=== PATIENT | female | born 1985 | race African-American/Black ===

== ENCOUNTER → 2016-12-13 | Outpatient (CLI) | payer BC, OTHER ==
[~2016-12-13] MED LIST: AMOX875T PO; CLIN300C2 PO; LORA-741 PO; PRDUDL5 PO; PRDXLUD PO; SULF800T23 PO; VNTHFA/IN INH
--- NOTE | 2016-12-14 06:05 | PAP/PSG TECHNICIAN REPORT ---
[facility] Consumer Insight Manager Polysomnogram Report Study name: None Report date: 12/14/2016 Study date: 12/13/2016 Referring Physician: Anna Wiseman M.D. Name: LUIS MARLEY Interpreting Physician: Beto Wiseman M.D. Date of : 1985 Consumer Insight Manager: LAUREN Roman. Sex: Female Age: 31 StudyType: PSG Weight: 429 lbs Height: 31 years, Height 5' 7" Neck Circum: BMI: 67.18 Medications: Naproxen Sodium 550mg, Flagyl 500mg, Ativan 0.5mg, Prilosec 20mg Patient History Study started on room air with ETCO2 monitoring in room #8. 31 yr old female here tonight for a possible split psg. In 2013 she had a sleep study that had an AHI of 5.2 at 407lbs. She now weighs 422lbs and still snores. She always feels tired. She never tried cpap..Her ESS=10/24. Neck circ=16.25inches. Parameters Monitored NPSG: E1-M2, E2-M1, Fp1-M2, Fp2-M1, F3-M2, F4-M2, F4-M1, C3-M2, C4-M2, C4-M1, O1-M2, O2-M2, O2-M1, T3-M2, T4-M1, P3-M2, P4-M1, CHIN1, CHIN2, HR, EKG, Legs, PFLOW, SNOR, FLOW, CFLOW, Tidal Volume, THOR, ABDO, SpO2, PLTH, CPRESS, ETCO2 Wave, ETCO2, pH Sleep Architecture Sleep Stages Time at Lights Off 11:13:04 PM STAGES Time (min.) TST (%) Time at Lights On 5:59:04 AM Wake 25.5 -- Total Recording Time (TRT) 406.00 min. N1 9.5 2 Total Sleep Period (TSP) 400.0 min. N2 221.5 58 Total Sleep Time (TST) 380.5min. N3 70.5 19 Awake Time 25.5 min. REM 79.0 21 Wake after Sleep Onset 19.5 min. Sleep Efficiency (SE) 94 % Sleep Onset Latency (FELICIA) 6.0 min. Number of Stage 1 Shifts None Awakenings 10 Stage Changes 50 Number of REM periods 7 REM 79.0 21 REM Latency 74.0 min. NREM 301.5 79 Body Position Analysis Supine Right Left Side Prone Vertical Total Sleep Time (min.) 406.0 0.0 0.0 0.00 0.0 0.0 Total Sleep Time (%) 100% 0% 0% 0 0% N/A% Total Sleep Time REM (min.) 79.0 0.0 0.0 None 0.0 0.0 Total Sleep Time NREM (min.) 301.5 0.0 0.0 None 0.0 0.0 Intermittent Wake (min.) 25.5 0.0 0.0 None 0.0 0.0 Total Sleep Period (%) 100% None None None None None Arousals Myoclonus (PLM) * Events Count Index Events Count Index Spontaneous 10 2 Events Awake (PLMW) 51 120.0 Respiratory 2 0.3 Events Asleep w/ Arousal (PLMA) 12 1.9 PLM 12 2 Events Asleep w/o Arousal (PLMS) 45 7.1 Snoring 21 3 Total Asleep 57 9.0 Total 43 7 Total 108 16 Respiratory Analysis * CA OA MA CH H RERA Total Count 0 0 0 0 15 0 15 Index 0.0 0.0 0.0 0 2.4 0 2.4 Mean Duration 0.0 0.0 0.0 0.00 18.3 0.0 18.3 Longest Duration 0.0 0.0 0.0 0.00 0.0 0.0 30.8 Respiratory Event Summary Total Supine ~Supine Right Left Prone REM NREM Apneas Count 0 0 N/A N/A N/A N/A 0 0 Index 0.0 0 N/A N/A N/A N/A 0 0 Hypopneas (4% Desat) Count 15 15 N/A N/A N/A N/A 12 3 Index 2.4 2.4 N/A N/A N/A N/A 9.1 0.6 Apneas & All Hypopneas Count 15 15 N/A N/A N/A N/A 12 3 Index 2.4 2 N/A N/A N/A N/A 9.1 0.6 Respiratory Events (Machine Woodworking Sander+All Hyp+RERA) Count 15 15 N/A N/A N/A N/A 12 3 Index 2.4 2 N/A N/A N/A N/A 9.1 0.6 Respiratory Related Arousal Count 2 15 N/A N/A N/A N/A 1 1 Index 0.3 0 N/A N/A N/A N/A 1 0 Snoring Analysis Supine Right Left Prone REM NREM Total Snore duration 30.6 min Snores count 1,786 N/A N/A N/A 273 1,513 1,786 Snore mean duration 1.0 Sec Snores index 282 N/A N/A N/A 207.3 301.1 281.6 TST with snoring (%) 8.0% SpO2 Analysis Total REM NREM Awake <50% 0.0 min. 0.0 min. 0.0 min. 0.0 min. 51 - 60% 0.0 min. 0.0 min. 0.0 min. 0.0 min. 61 - 70% 0.0 min. 0.0 min. 0.0 min. 0.0 min. 71 - 80% 0.0 min. 0.0 min. 0.0 min. 0.0 min. 81 - 90% 44.8 min. 12.7 min. 29.7 min. 2.5 min. 91 - 100% 360.8 min. 66.3 min. 271.9 min. 22.7 min. Average 92 92 92 93 Minimum SpO2 84 84 88 88 Desaturation Event Index 5.3 17.5 1.6 11.8 # Desat. Events below 89% 11 9 2 N/A Time(%) with Saturation below 89% 0.6 0.5 0.1 0.0 Time(min.) with Saturation below 89% 2.4 2.0 0.3 0.1 Heart Rate Analysis End Tidal CO2 Analysis Min (bpm) Max (bpm) Average (bpm) TSP (mins) % of TSP Awake 63 102 87 Above 55 mmHg 0.0 0.0 NREM 63 104 83 50-55 mmHg 22.9 6.0 REM 68 101 84 45-50 mmHg 289.7 76.1 Overall 63 104 83 40-45 mmHg 67.8 17.8 35-40 mmHg 0.0 0.0 30-35 mmHg 0.0 0.0 Average ETCO2 0.0 Supplemental O2 Values Minimum O2 level: None Value Start Time End Time Consumer Insight Manager Comments Mrs. Marley slept in the supine position with her head propped up on several pillows as she sleeps at home. No cardiac arrhythmia or PLM's noted. No bruxism noted. Snoring was noted and scored as a 4 on a scale of 1 through 5. (0=no snoring, 5=snoring loud enough to be heard through a closed door or down the [place] way) She did not use the restroom during the night. She stated that she slept about the same as usual. She did get two phone calls during the night that woke her. The final report will be interpreted and signed by a sleep physician. The completed physician report will then be placed in the patient medical record. Therapy (cm H2O) 0 TIB (min.) 406.0 TST (min.) 380.5 Sleep Onset (min.) 6.0 REM Onset From Sleep (min.) 74.0 Sleep Efficiency % 94 Wakefulness (%) 6 Wakefulness (min.) 25.5 NREM 1 (%) 2 NREM 1 (min.) 9.5 NREM 2 (%) 58 NREM 2 (min.) 221.5 NREM 3 (%) 19 NREM 3 (min.) 70.5 REM (%) 21 REM (min.) 79.0 # Arousals 43 Arousal Index 7 # Snore 1,786 Snore Index 281.6 AHI 2.4 AHI Supine 2 AHI Non-Supine N/A NREM AHI 0.6 REM AHI 9.1 RDI 2.4 # Obstructive Apnea 0 # Central Apnea 0 # Mixed Apnea 0 # Hypopneas 15 RERAs 0 Total Respiratory Events 15 Time Below SpO2 89% (min.) 2.3 Mean NREM SpO2 (%) 92 Mean REM SpO2 (%) 92 Mean Sleep SpO2 (%) 92 Min NREM SpO2 (%) 88 Min REM SpO2 (%) 84 Position Supine (min.) 406.0 Position Non-supine (min.) 0.0 LM Index Sleep 9.0 LM Index NREM 9.4 LM Index REM 7.6 Mean Heart Rate (bpm) 83 Min Heart Rate (bpm) 63
--- NOTE | 2016-12-17 14:28 | POLYSOMNOGRAPH REPORT ---
REFERRING PERSON: Dr. John Wiseman. COMMUNICATIONS PLANNER: Danielle Armstrong. Ms. 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 She states she always feels tired and never feels rested. Her [place] sleepiness scale score on the evening of this study is 10. BMI is 67.18. Following the technical and digital specifications of the [place] [employer] (AASM) a standard diagnostic polysomnogram was performed monitoring EEG, EOG, EMG (chin and leg deviations), oxygen saturation, body position, digital video, respiratory effort and airflow. The sleep Stage and event scoring was based on the AASM Manual for the Scoring of Sleep and Associated Events 2007 edition. Apneas are defined as a drop in the peak thermal sensor excursion by >90% of baseline for at least 10 seconds. Hypopneas were scored using the 4% oxygen desaturation rule (4A-Medicare) and a decrease in the nasal pressure excursions by >30% of baseline for at least 10 seconds. Respiratory effort-related arousal (RERA's) is defined as a sequence of breaths lasting at least 10 seconds characterized by increasing respiratory effort or flattening of the nasal pressure waveform leading to an arousal from sleep when the sequence of breaths does not meet criteria for an apnea or hypopnea. Apnea Hypopnea index (AHI) is defined as the number of apneas and hypopneas occurring in an hour of sleep. Respiratory disturbance index (RDI) is defined as the number of apneas, hypopneas, and RERA's occurring in an hour of sleep. Ms. Marley's total sleep period time was 400 minutes. Total sleep time was 380.5 minutes. Sleep efficiency was 94%. Latency to sleep onset was 6 minutes with wake after sleep onset of 19.5 minutes. Total non-REM sleep time was 301.5 minutes. She spent 2% of that time in N1 sleep, 58% in N2 sleep and 19% in N3 sleep. REM latency was 74 minutes with total REM sleep time of 79 minutes or 21% of total sleep time. Ms. Marley had 43 cortical arousals from sleep. 21 of these arousals were due to snoring, 12 due to periodic limb movements of sleep, 2 were due to respiratory events, and 10 were spontaneous. There were 57 periodic limb movements noted on this test. Limb movement index was 9. Limb movement with arousal index was 1.9. There were no central obstructive or mixed apneas on this test. There were 15 hypopnea and no RERA. Apnea-hypopnea index was normal at 2.4. She did have some events during REM and her REM AHI was 9.1. 1786 snoring events were recorded. Total sleep time with snoring was 8%. Mean saturation was 92 with desaturations briefly to 84%. Saturations were less than 89 for only 2.4 minutes of sleep time. Heart rates during sleep ranged from a low of 63 beats per minute to a high of 104 beats per minute. End tidal CO2s were recorded on this test. End tidal CO2s were between 50 and 55 mmHg for 22.9 minutes of recording time or 6% of total sleep time, between 45 and 50 mmHg for 76.1%, between 40 and 45 mmHg for 17.8% of total sleep period time. This is suggestive of possible obesity hypoventilation. IMPRESSION AND PLAN: 31-year-old morbidly obese female without evidence of sleep apnea or nocturnal hypoxemia on this study. End tidal CO2 on this test suggests possible obesity hypoventilation syndrome. Clinical correlation is needed.
== END | disposition home or self-care (01) ==
LOC: C.NEUR 21:00
PROVIDERS: ATTEND Family Medicine
DX: G47.33 Obstructive sleep apnea (adult) (pediatric) (principal)

== ENCOUNTER 2017-02-14 23:53 | Emergency (ER) | payer OTHER ==
[~2017-02-14] VITALS: Ht 170.2 cm; Wt 182.5 kg
[~2017-02-14 23:53] MED LIST changes: -AMOX875T PO; -CLIN300C2 PO; -PRDUDL5 PO; -PRDXLUD PO; -SULF800T23 PO; -VNTHFA/IN INH
[2017-02-14 23:54] VITALS: TEMP 37.3; Ht 170.2 cm; Wt 182.5 kg
[2017-02-15] MEDS ORDERED: ACETAMINOPHEN 500 MG TAB PO STA (00:15)
[2017-02-15] MEDS ORDERED: SODIUM CHLORIDE 0.9% 1000ML 1,000 ML IV ONE (00:15)
[2017-02-15] MEDS ORDERED: LORA-741 PO (00:40)
[2017-02-15 00:42] LABS: HEMATOCRIT 41.1 % (37-47); MEAN CELL VOLUME 83.2 fL (80-100); MEAN CORPUSCULAR HEMOGLOBIN 28.5 pg (25-34); MEAN CORPUSCULAR HGB CONC 34.3 g/dl (32-36); MEAN PLATELET VOLUME 10.8 fL (7.4-10.4); PLATELET COUNT 245 K/uL (130-400); RED BLOOD COUNT 4.94 M/uL (4.2-5.4); WHITE BLOOD COUNT 13.69 K/uL (4.8-10.8)
[2017-02-15 00:44] LABS: URINE APPEARANCE CLOUDY (CLEAR); URINE BILIRUBIN NEG (NEG); URINE COLOR YELLOW; URINE EPITHELIAL CELL AUTO >30 /lpf (0-5); URINE NITRITE NEG (NEG); URINE SPECIFIC GRAVITY 1.018 (1.000-1.030); UROBILINOGEN NEG (NEG); ZZUR CULT IF INDIC CLEAN CATCH NO
[2017-02-15 00:47] LABS: MANUAL MICROSCOPIC REQUIRED? NO; REVIEW REQ? NO
[2017-02-15 01:03] LABS: BUN/CREATININE RATIO 10.4 (10-20); CALCIUM 8.6 mg/dl (8.5-10.1); CREATININE 0.77 mg/dl (0.60-1.20); POTASSIUM 3.4 mmol/L (3.5-5.1)
[2017-02-15 01:07] LABS: ALB/GLOB RATIO 0.7 (0.9-2)
[2017-02-15 01:32] LABS: BASO % 0.1 %; BASO ABS # 0.02 K/uL (0-0.2); COMPLETE YES; EOS % 1.5 %; IG% 0.4 %; LYMPH % 37.3 %; LYMPH ABS # 5.11 K/uL (1.2-3.4); MONO % 6.4 %; NEUT % 54.3 %
[2017-02-15 02:55] VITALS: BP 100/68; PULSE 91; O2SAT 97
--- NOTE | 2017-02-15 06:28 | EMERGENCY ROOM VISIT NOTE ---
History First contact with patient: 00:05 Chief Complaint: ABDOMINAL PAIN Stated Complaint: ADB PAIN,CRAMPING Nursing Triage Summary: pt c/o pain with urination, left sided abd pain then she thought she had movement in her abd tonight, has thought she was but tests have been neg. History of Present Illness The patient is a 31 year old female who presents to the Emergency Room with complaints of left-sided abdominal pain that began tonight. The patient describes this as a cramping sensation that does not radiate. The patient has been eating, drinking, using the bathroom is normal. The patient is concerned about as she is trying to become . She states her last regular menstrual period was about 2 months ago. She also states that she has had one previous where her urine screen was negative throughout. The patient does not have fever or chills. No chest pain, chest tightness, or shortness of breath. No vaginal drainage or discharge. She rates her discomfort a 5/10. Review of Systems More than 10 systems were reviewed and otherwise negative with the exception of history of present illness. Past Medical/Surgical History Medical Problems: (1) Abdominal pain (2) Abscess of breast (3) Acute bronchitis (4) Anxiety State Nos (5) Asthma (6) Body aches (7) Chest pain (8) Fatigue (9) Hidradenitis (10) Hidradenitis suppurativa of left axilla (11) Hidradenitis suppurativa of left axilla (12) Hidradenitis suppurativa of right axilla (13) HIGH VAGINAL LAC-POSTPAR (14) Influenza-like symptoms (15) Left ankle sprain (16) Morbid Obesity (17) Pharyngitis (18) Preseptal cellulitis of left eye (19) Sinusitis (20) Sty, internal (21) Thoracic spine pain (22) Urinary tract infection (23) Urinary tract infection (24) Vaginal delivery (25) Vaginal discharge in Surgical Problems: (1) History of bilateral breast reduction surgery Family History Patient reports no known family medical history. Social History Smoking Status: Current Every Day Smoker Alcohol Use: none Drug Use: none Marital Status: Housing Status: lives with family Occupation Status: employed Current/Historical Medications Scheduled PRN Lorazepam (Ativan), 0.5 MG PO TID PRN for Anxiety Allergies Coded Allergies: No Known Allergies (Verified , 02/15/17) Physical Exam Vital Signs Date Time Temp Pulse Resp B/P Pulse Ox O2 Delivery O2 Flow Rate FiO2 02/15/17 02:55 91 16 100/68 97 02/14/17 23:54 37.3 98 18 159/86 96 Room Air Pain Rating (0-10): 6.0 Physical Exam VITALS: Vitals are noted on the nurse's note and reviewed by myself. Vital signs stable. GENERAL: Well-developed, well-nourished, morbidly obese black female, who is in no acute distress and resting comfortably. Patient is cooperative with the examination. HEAD: Normocephalic atraumatic. NECK: Supple without nuchal rigidity. No lymphadenopathy. No thyromegaly. Cervical spine is nontender. HEART: Regular rate and rhythm without murmurs gallops or rubs. LUNGS: Clear to auscultation bilaterally without wheezes, rales or rhonchi. No retractions or accessory muscle use. ABDOMEN: Positive normal bowel sounds x 4. Soft, nontender, without masses or organomegaly. No guarding or rebound tenderness. MUSCULOSKELETAL: No muscle atrophy, erythema, or edema noted. Full range of motion without joint tenderness in all extremities. Medical Decision & Procedures ER Provider Diagnostic Interpretation: CT ABDOMEN & PELVIS: Prior from 09/06/16 Normal appendix. No free air, free fluid, or bowel obstruction. No obstructing urinary tract calculus or hydronephrosis. Small fat-containing umbilical hernia Small and mildly enlarged inguinal nodes, nonspecific Laboratory Results 02/15/17 00:20 Red Blood Count 4.94, Mean Corpuscular Volume 83.2, Mean Corpuscular Hemoglobin 28.5, Mean Corpuscular Hemoglobin Concent 34.3, Mean Platelet Volume 10.8, Neutrophils (%) (Auto) 54.3, Lymphocytes (%) (Auto) 37.3, Monocytes (%) (Auto) 6.4, Eosinophils (%) (Auto) 1.5, Basophils (%) (Auto) 0.1, Neutrophils # (Auto) 7.43, Lymphocytes # (Auto) 5.11, Monocytes # (Auto) 0.87, Eosinophils # (Auto) 0.21, Basophils # (Auto) 0.02 02/15/17 00:20 Test 02/15/17 00:20 White Blood Count 13.69 K/uL (4.8-10.8) Red Blood Count 4.94 M/uL (4.2-5.4) Hemoglobin 14.1 g/dL (12.0-16.0) Hematocrit 41.1 % (37-47) Mean Corpuscular Volume 83.2 fL (80-100) Mean Corpuscular Hemoglobin 28.5 pg (25-34) Mean Corpuscular Hemoglobin Concent 34.3 g/dl (32-36) Platelet Count 245 K/uL (130-400) Mean Platelet Volume 10.8 fL (7.4-10.4) Neutrophils (%) (Auto) 54.3 % Lymphocytes (%) (Auto) 37.3 % Monocytes (%) (Auto) 6.4 % Eosinophils (%) (Auto) 1.5 % Basophils (%) (Auto) 0.1 % Neutrophils # (Auto) 7.43 K/uL (1.4-6.5) Lymphocytes # (Auto) 5.11 K/uL (1.2-3.4) Monocytes # (Auto) 0.87 K/uL (0.11-0.59) Eosinophils # (Auto) 0.21 K/uL (0-0.5) Basophils # (Auto) 0.02 K/uL (0-0.2) RDW Standard Deviation 40.7 fL (36.4-46.3) RDW Coefficient of Variation 13.5 % (11.5-14.5) Immature Granulocyte % (Auto) 0.4 % Immature Granulocyte # (Auto) 0.05 K/uL (0.00-0.02) Urine Color YELLOW Urine Appearance CLOUDY (CLEAR) Urine pH 6.0 (4.5-7.5) Urine Specific [place] 1.018 (1.000-1.030) Urine Protein NEG (NEG) Urine Glucose (UA) NEG (NEG) Urine Ketones NEG (NEG) Urine Occult Blood 1+ (NEG) Urine Nitrite NEG (NEG) Urine Bilirubin NEG (NEG) Urine Urobilinogen NEG (NEG) Urine Leukocyte Esterase TRACE (NEG) Urine WBC (Auto) 1-5 /hpf (0-5) Urine RBC (Auto) 5-10 /hpf (0-4) Urine Hyaline Casts (Auto) 1-5 /lpf (0-5) Urine Epithelial Cells (Auto) >30 /lpf (0-5) Urine Bacteria (Auto) NEG (NEG) Anion Gap 9.0 mmol/L (3-11) Est Creatinine Clear Calc Drug Dose 187.2 ml/min Estimated GFR () 120.9 Estimated GFR (Non- 104.3 BUN/Creatinine Ratio 10.4 (10-20) Calcium Level 8.6 mg/dl (8.5-10.1) Total Bilirubin 0.2 mg/dl (0.2-1) Aspartate Amino Transf (AST/SGOT) 10 U/L (15-37) Alanine Aminotransferase (ALT/SGPT) 21 U/L (12-78) Alkaline Phosphatase 95 U/L (45-117) Total Protein 7.6 gm/dl (6.4-8.2) Albumin 3.2 gm/dl (3.4-5.0) Globulin 4.4 gm/dl (2.5-4.0) Albumin/Globulin Ratio 0.7 (0.9-2) Lipase 91 U/L (73-393) Human Chorionic Gonadotropin, Quant < 1 mIU/mL Medications Administered Medications (Trade) Dose Ordered Sig/Missy Route Start Time Stop Time Status Last Admin Dose Admin Sodium Chloride (Nss 1000ml) 1,000 ml @ 999 mls/hr Q1H1M ONCE IV 02/15/17 00:15 02/15/17 01:15 DC 02/15/17 00:27 999 MLS/HR Acetaminophen (Tylenol Tab) 1,000 mg NOW STAT PO 02/15/17 00:15 02/15/17 00:17 DC 02/15/17 00:28 1,000 MG ED Course Physical exam and history were performed. Nursing notes and EMR were reviewed. Patient appears to have reports of left-sided abdominal pain over the course of the past one day. On examination the patient does not appear toxic and is without significant abdominal tenderness. One of her primary concerns is for . IV access was established and labs obtained. The patient was hydrated as above. The patient's blood work is as above and was reviewed. She does have a mildly elevated white blood cell count of greater than 13,000. She does not have a significant anemia or gross electrolyte imbalance. Her hCG quantitative is less than 1, and she is not . Lipase and transaminases are nondiagnostic. Urine is without obvious sign of infection. On reevaluation she did continue to have some reported left-sided abdominal discomfort, and because of this I did elect perform a CT scan. The patient CT scan is as above and does not show an acute surgical process. The patient does have some enlarged lymph nodes, and her symptoms may certainly be the result of a viral or foodborne illness. I explained this to the patient , and overall she feels stable for discharge home. The patient is to follow-up with her primary care physician in the next 2-3 days for recheck. She was otherwise invited back to the ER with any new, worsening, or concerning symptoms. The chart was completed utilizing [employer] Speech Voice Recognition Software. Grammatical errors, random word insertions, pronoun errors, and incomplete sentences are an occasional consequence of this system due to software limitations, ambient noise, and hardware issues. Any formal questions or concerns about the content, text, or information contained within the body of this dictation should be directly addressed to the provider for clarification. . Medical Decision Differential diagnosis: Etiologies such as appendicitis, diverticulitis, PUD, biliary pathology, UTI, pancreatitis, obstruction, mesenteric ischemia, aortic pathology, infections, inflammatory bowel disease, renal colic, as well as others were entertained. Impression Primary Impression: Left sided abdominal pain Departure Information Dispostion Home / Self-Care Condition GOOD Forms HOME CARE DOCUMENTATION FORM, IMPORTANT VISIT INFORMATION Patient Instructions My [facility] Additional Instructions You were seen and evaluated today on an emergency basis only. This is not a substitute for, or an effort to provide, complete comprehensive medical care. It is not possible to recognize and treat all injuries or illnesses in a single emergency department visit. For this reason it is recommended that you followup with your primary care physician next week for ongoing care and evaluation. Drink fluids and remain well hydrated. For baseline pain relief you may alternate ibuprofen and acetaminophen every 4 hours for pain control. Take 600 mg ibuprofen (Advil) and then 4 hours later take 1000 mg acetaminophen (Tylenol). Do not take more than 3000 mg acetaminophen in a single day. You are welcome to return to the emergency department anytime with new, worsening, or concerning symptoms.
--- NOTE | 2017-02-15 07:15 | DIAGNOSTIC IMAGING REPORT ---
CT SCAN OF THE ABDOMEN AND PELVIS WITHOUT IV CONTRAST CLINICAL HISTORY: Left-sided abdominal pain. COMPARISON STUDY: Abdominal CT dated 09/06/2016. TECHNIQUE: CT scan of the abdomen and pelvis is performed from the lung bases to the proximal femora. Images are reviewed in the axial, sagittal, and coronal planes. IV contrast was not administered for this examination as per the referring clinician. Note that the examination was performed in suboptimal fashion without oral and IV contrast. The examination is significantly degraded by large body habitus, and by streak artifact from the body wall abutting the CT gantry. Automated dose control exposure was utilized. CT DOSE: 2684.78 mGy.cm FINDINGS: Lung bases: The heart is normal in size and without pericardial effusion. There is a trace right pleural effusion. The lung bases are otherwise clear. Liver: Evaluation of the liver is significantly degraded by streak artifact. The unenhanced liver is enlarged, measuring 24 cm in length. The liver demonstrates diffusely diminished attenuation consistent with severe hepatic steatosis. There is no intrahepatic biliary ductal dilatation. Gallbladder: Unremarkable. Spleen: Normal in size and attenuation. Pancreas: Unremarkable. Adrenal glands: Unremarkable. Kidneys: The unenhanced kidneys are normal in size and without hydronephrosis. There are no renal calculi identified. There is no evidence of contour deforming renal mass lesion. Abdominal vasculature: The abdominal aorta is normal in course and caliber. Bowel: The small bowel and colon are normal in course and caliber. The appendix is well-visualized and normal. Peritoneum: There is no intraperitoneal free air or abdominal ascites. There is a fat-containing umbilical hernia. Lymphadenopathy: None. Pelvic viscera: The bladder, uterus, and adnexa are normal as visualized. Skeletal structures: No lytic or blastic lesions are seen. IMPRESSION: 1. Suboptimal examination without IV contrast. The examination is also degraded by streak artifact. 2. There are no acute infectious or inflammatory findings in the abdomen or pelvis. 3. Hepatomegaly and severe hepatic steatosis. Electronically signed by: Baljit Grullon M.D. 02/15/2017 7:14 AM Dictated Date/Time: 02/15/2017 7:09 AM
[2017-08-15] MEDS ORDERED: VNTHFA/IN INH (09:17)
[2017-08-15] MEDS ORDERED: LORA-741 PO (09:18)
[2017-08-25] MEDS ORDERED: CLIN300C2 PO (15:55)
== END 2017-02-15 02:56 | disposition home or self-care (01) ==
LOC: C.EDB 23:54 → C.EDC 02-15 02:56
DX: R10.9 Unspecified abdominal pain (principal); F41.9 Anxiety disorder, unspecified; J45.909 Unspecified asthma, uncomplicated; F17.200 Nicotine dependence, unspecified, uncomplicated; Z86.19 Personal history of other infectious and parasitic diseases; Z87.440 Personal history of urinary (tract) infections; Z79.899 Other long term (current) drug therapy

== ENCOUNTER → 2017-03-28 | Day surgery (SDC) | payer OTHER ==
[2017-03-18 09:15] VITALS: BMI 62.0
[~2017-03-28] VITALS: Ht 170.2 cm; Wt 181.8 kg
[~2017-03-28] MED LIST changes: +AMOX875T PO; +CEPH500C2 PO; +CLIN300C2 PO; +DOCU-94 PO; +KETAMINE HCL INJ 50 MG/ML 10 ML VIAL ONE; +LIDOCAINE HCL 2% 2 ML VIAL (20MG/ML) ONE; +ONDA4TAB10 SL; +OXYC-57 PO; +PRDUDL5 PO; +PRDXLUD PO; +PROPOFOL IV EMULSION 10 MG/ML 20 ML VIAL IV ONE; +SODIUM CHLORIDE 0.9% 500ML 500 ML IV ONE; +SULF800T23 PO; +VNTHFA/IN INH
[2017-03-28 09:16] VITALS: Ht 170.2 cm; Wt 181.8 kg
--- NOTE | 2017-03-28 09:42 | Endo History and Physical ---
History & Physical Date of Service: March 28, 2017. Chief Complaint: family history maternal grandmother Referring Physician: rd jaime DO History of Present Illness 31 yo with family hx of colon cancer and hx of rectal bleeding presenting for colonoscopy Past Surgical History Hx Cardiac Surgery: No Hx Internal Defibrillator: No Hx Pacemaker: No Hx Abdominal Surgery: No Hx of Implantable Prosthesis: No Hx Post-Op Nausea and Vomiting: No Hx Cancer Surgery: No Hx Thoracic Surgery: No Hx Orthopedic: No Hx Urinary Tract Surgery: No Family History Colon CA Social History Smoking Status: Current Every Day Smoker Hx Substance Use: No Hx Alcohol Use: No Allergies Coded Allergies: No Known Allergies (Verified , 03/28/17) Current Medications Reported Home Medications Medications Dose Route/Sig Max Daily Dose Days Date Category Ativan (Lorazepam) 0.5 Mg Tab 0.5 Mg PO BID PRN 03/18/17 Reported Ventolin Hfa (Albuterol) 200 Puffs/80803 Mcg Aers 2-4 Puffs INH Q6H PRN 03/18/17 Reported Vital Signs Weight (Kilograms): 181.82 Height (Feet): 5 Height (Inches): 7 Date Time Temp Pulse Resp B/P Pulse Ox O2 Delivery O2 Flow Rate FiO2 03/28/17 09:32 36.7 77 22 112/79 95 Room Air Physical Exam General Appearance: WD/WN, no apparent distress Respiratory/Chest: Respiratory effort: no dyspnea Auscultation: breath sounds normal, CTA except as noted, no wheezing Cardiovascular: Apical Impulse: not displaced Heart Auscultation: RRR, normal S1, normal S2 Assessment and Plan 31 yo presenting for colonoscopy for rectal bleeding and family hx of colon cancer.
--- NOTE | 2017-03-28 10:30 | Discharge Instructions ---
Endoscopy Patient Instructions Date / Procedure(s) Performed March 28, 2017. Colonoscopy Allergy Information Coded Allergies: No Known Allergies (Verified , 03/28/17) Discharge Date / Findings March 28, 2017. Poor prep One large polyp removed Diverticuli Internal hemorrhoids Provider Instructions Activity Restrictions - No exercising or heavy lifting for 24 hours. - Do not drink alcohol the day of the procedure. - Do not drive a car or operate machinery until the day after the procedure. - Do not make any important decisions or sign important papers in 24 hours after the procedure. Following Day: - Return to full activity which may include returning to work/school. Diet Start your diet with liquids and light foods (jello, soup, juice, toast). Then eat your usual diet if not nauseated. Treatment For Common After Affects For mild abdominal pain, bloating, or excessive gas: - Rest - Eat lightly - Lie on right side Follow-Up Information Follow-up with rd jaime DO as scheduled Anesthesia Information What You Should Know You have had a procedure that required some medicine to reduce anxiety and discomfort. This treatment is called moderate sedation. After receiving the treatment, you may be sleepy, but you will be able to breathe on your own. The effects of the treatment may last for several hours. Follow these instructions along with Activity/Diet recommendations noted above: * Do NOT do anything where dizziness or clumsiness would be dangerous. * Rest quietly at home today, then you can be up and about tomorrow. * Have a responsible person stay with you the rest of today. * You may have had an I.V. today. If so, you may take the dressing off later today. Recommendations Call your doctor if: * Trouble breathing * Continuous vomiting for more than 24 hours * Temperature above 101 degrees * Severe abdominal pain or bloating * Pain not relieved by pain medicine ordered * There is increased drainage or redness from any incision * A large amount of rectal bleeding greater than 2-3 tablespoons. (If you had a polyp/s removed or have hemorrhoids, a small amount of blood - from the rectum is to be expected.) * You have any unanswered questions or concerns. IN THE EVENT OF A SERIOUS EMERGENCY, GO TO THE NEAREST EMERGENCY ROOM Your discharge instructions were prepared by provider James Person. Patient Instructions Signature Page Mel Philip Patient (or Guardian) Signature/Date: I have read and understand the instructions given to me by my caregivers. Caregiver/RN/Doctor Signature/Date: The above-named patient and/or guardian has received patient instructions on this date. + Original Patient Signature Page (only) stays with chart. Please make copy for patient.
--- NOTE | 2017-03-28 10:30 | GI REPORT ---
Procedure Date: 03/28/2017 9:31 AM Procedure: Colonoscopy Indications: Rectal bleeding Medicines: General Anesthesia Complications: No immediate complications. Estimated blood loss: None. Estimated Blood Loss: Estimated blood loss: none. Procedure: Pre-Anesthesia Assessment: - Pre-Anesthesia Assessment: - Prior to the procedure, a History and Physical was performed, and patient medications, allergies and sensitivities were reviewed. The patient's tolerance of previous anesthesia was reviewed. Please see [employer] for complete details. - The risks and benefits of the procedure and the sedation options and risks were discussed with the patient. All questions were answered and informed consent was obtained. - Patient identification and proposed procedure were verified prior to the procedure by the physician and the nurse. The procedure was verified in the pre-procedure area in the procedure room. After obtaining informed consent, the endoscope was passed carefully and meticuously under direct vision and only advanced when the lumen was clearly identified, C02 insuflation was utilized throughout the entirity of the procedure. Throughout the procedure, the patient's blood pressure, pulse, and oxygen saturations were monitored continuously. After I obtained informed consent, the scope was passed under direct vision. Throughout the procedure, the patient's blood pressure, pulse, and oxygen saturations were monitored continuously. The scope was introduced through the anus and advanced to the terminal ileum, with identification of the appendiceal orifice and IC valve. The colonoscopy was performed without difficulty. The patient tolerated the procedure well. The quality of the bowel preparation was poor. Findings: A 10 mm polyp was found in the ascending colon. The polyp was sessile. The polyp was removed with a hot snare. The polyp was removed with a saline injection-lift technique using a hot snare. Resection and retrieval were complete. To prevent bleeding post-intervention, one hemostatic clip was successfully placed (MR conditional). There was no bleeding during, and at the end, of the procedure. Multiple small-mouthed diverticula were found in the sigmoid colon. Internal hemorrhoids were found during retroflexion. The exam was otherwise without abnormality on direct and retroflexion views. Impression: - One 10 mm polyp in the ascending colon, removed with a hot snare and removed using injection-lift and a hot snare. Resected and retrieved. Clip (MR conditional) was placed. - Diverticulosis in the sigmoid colon. - Internal hemorrhoids. - The examination was otherwise normal on direct and retroflexion views. Recommendation: - Discharge patient to home (with escort). - Repeat colonoscopy in 1 year because the bowel preparation was poor. - Return to referring physician as previously scheduled. James Person MD 03/28/2017 10:29:36 AM This report has been signed electronically. Note Initiated On: 03/28/2017 9:31 AM I attest to the content of the Intraoperative Record and orders documented therein, exceptions below
--- NOTE | 2017-03-28 10:45 | Anesthesiology Progress Note ---
Anesthesia Post Op Note Date & Time March 28, 2017 at 10:45 Vital Signs Pain Intensity: 3 Vital Signs Past 12 Hours Date Time Temp Pulse Resp B/P Pulse Ox O2 Delivery O2 Flow Rate FiO2 03/28/17 10:35 75 22 129/78 95 Room Air 03/28/17 09:32 36.7 77 22 112/79 95 Room Air Notes Mental Status: alert / awake / arousable, participated in evaluation Pt Amnestic to Procedure: Yes Nausea / Vomiting: adequately controlled Pain: adequately controlled Airway Patency, RR, SpO2: stable & adequate BP & HR: stable & adequate Hydration State: stable & adequate Anesthetic Complications: no major complications apparent
[2017-03-28 11:02] VITALS: BP 127/87; PULSE 72; O2SAT 99
== END | disposition home or self-care (01) ==
LOC: C.GI 09:01
PROVIDERS: ATTEND Internal Medicine
DX: K62.5 Hemorrhage of anus and rectum (principal); D12.2 Benign neoplasm of ascending colon; K57.31 Diverticulosis of large intestine without perforation or abscess with bleeding; K64.8 Other hemorrhoids; F17.200 Nicotine dependence, unspecified, uncomplicated; Z80.0 Family history of malignant neoplasm of digestive organs

== ENCOUNTER 2017-04-01 13:51 | Emergency (ER) | payer OTHER ==
[~2017-04-01] VITALS: Ht 170.2 cm; Wt 173.0 kg
[2017-04-01 13:57] VITALS: TEMP 36.8; Ht 170.2 cm; Wt 173.0 kg
[2017-04-01] MEDS ORDERED: MoRPHine SULFATE 4 MG/ML 1 ML CARP\\VIAL IV STA (14:17)
[2017-04-01] MEDS ORDERED: SODIUM CHLORIDE 0.9% 1000ML 1,000 ML IV STA (14:17)
[2017-04-01] MEDS ORDERED: ONDANSETRON INJ 2 MG/ML 2 ML VIAL IV STA (14:17)
[2017-04-01 14:55] LABS: BASO % 0.1 %; BASO ABS # 0.01 K/uL (0-0.2); COMPLETE YES; EOS % 1.4 %; HEMATOCRIT 41.8 % (37-47); IG% 0.3 %; LYMPH % 30.1 %; MEAN CELL VOLUME 84.4 fL (80-100); MEAN CORPUSCULAR HEMOGLOBIN 28.3 pg (25-34); MEAN CORPUSCULAR HGB CONC 33.5 g/dl (32-36); MEAN PLATELET VOLUME 10.8 fL (7.4-10.4); MONO % 6.7 %; NEUT % 61.4 %; PLATELET COUNT 220 K/uL (130-400); RED BLOOD COUNT 4.95 M/uL (4.2-5.4); WHITE BLOOD COUNT 11.61 K/uL (4.8-10.8)
[2017-04-01 15:00] LABS: PARTIAL THROMBOPLASTIN RATIO 1.3; PROTHROMBIN TIME (PATIENT) 10.6 SECONDS (9.0-12.0)
[2017-04-01 15:01] LABS: MANUAL MICROSCOPIC REQUIRED? YES; URINE APPEARANCE TURBID (CLEAR); URINE BILIRUBIN NEG (NEG); URINE NITRITE NEG (NEG); UROBILINOGEN NEG (NEG)
[2017-04-01 15:02] LABS: REVIEW REQ? NO; SULFASALICYLIC ACID POS (NEG); URINE COLOR RED; URINE RBC >30 /hpf (0-4)
[2017-04-01 15:03] LABS: URINE BACTERIA 1+ (NEG)
[2017-04-01 15:03] LABS: BUN/CREATININE RATIO 14.6 (10-20); CALCIUM 8.6 mg/dl (8.5-10.1); CREATININE 0.59 mg/dl (0.60-1.20); POTASSIUM 3.8 mmol/L (3.5-5.1)
[2017-04-01 15:06] LABS: ALB/GLOB RATIO 0.7 (0.9-2)
[2017-04-01 15:08] LABS: PREG INTERNAL NEGATIVE QC NEG CLEAR BACKGROUND; PREG INTERNAL POSITIVE QC POS CONTROL LINE
--- NOTE | 2017-04-01 16:10 | DIAGNOSTIC IMAGING REPORT ---
EXAMINATION: PELVIC ULTRASOUND CLINICAL HISTORY: Abnormal vaginal bleeding COMPARISON STUDY: 10/24/2014 FINDINGS: The uterus measured 10.4 x 6.4 x 8.3 cm. The endometrial stripe measured 17 mm.. The right ovary measured 28 x 15 x 16 mm. The left ovary measured 3 7 x 44 x 31 mm. This 23 mm left ovarian follicular cyst. There is no ultrasonographic evidence of ovarian torsion. It should be noted that ovarian torsion can be present with normal Doppler ultrasonographic findings. There is trace free fluid, likely physiologic. IMPRESSION: Mildly thickened endometrial stripe (17 mm). Otherwise unremarkable pelvic ultrasound. Electronically signed by: Bert Mares M.D. 04/01/2017 4:09 PM Dictated Date/Time: 04/01/2017 4:06 PM
[2017-04-01 17:11] VITALS: BP 110/69; PULSE 87; O2SAT 97
--- NOTE | 2017-04-01 23:26 | EMERGENCY ROOM VISIT NOTE ---
ED Visit Note First contact with patient: 14:04 Chief Complaint: Abdominal pain and vaginal bleeding. History of Present Illness: Ms. Marley is a 31 year-old white female complaining of vaginal bleeding and right lower quadrant abdominal pain. Historically patient reports patient is 2 and para 2 with no complications with her or deliveries. According to her medical records her blood type is B+. 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 Patient reports her menstrual cycles have been very irregular since November 2016. She reports she feels her last normal menstrual cycle was in January but was only in January. She reports this past Friday, 2 days ago she noted some spotting and on Friday, one day ago she had no spotting or bleeding. Last night she reports she had a severe onset of a cramping sensation in the lower abdomen that self resolved after a few minutes. Additionally patient does report she had colonoscopy 4 days ago for a family history of colon cancer as a screening study. She reports a mass was removed and she is waiting on the results of the pathology. This morning she awoke and was not having any discomfort. She reports she took a shower was talking on the phone and after her shower, approximately 11:00, proximally 3 hours ago, she started having cramping in the right lower quadrant and report the passage of a "plum"-sized blood clot and since that time she reports she's been having bleeding. She reports she has saturated 2 sanitary napkins and she continues to see clots. This is associated with a cramping pain in the right lower quadrant. She rates her discomfort 5/10. Her pain is nonradiating. She has not identified any aggravating or alleviating factors related to the pain. She has not taken any medication for pain prior to arrival at the hospital. With the exception of her vaginal bleeding she denies any associated symptoms. Patient denies fevers, chills, sweats, skin eruptions, skin color changes, upper respiratory tract symptoms, shortness of breath, chest pain, nausea, vomiting, diarrhea, constipation, rectal bleeding, black/tarry stools, urinary symptoms, hematuria, back/flank pain. Review of Systems: As noted above in history of present illness. All body systems were reviewed and found to be negative as noted above. Past Medical History: Asthma, status post bilateral breast reduction. Current Medications: Allergies to Medications: Patient denies. Social History: Patient is currently employed; she lives with her family and feels safe in her home environment; she minutes and tobacco use and denies alcohol use. Physical Examination: Vital Signs: GENERAL: 31-year-old female in mild distress due to pain, nontoxic-appearing, afebrile and hemodynamically stable. NEUROLOGICAL: Awake, alert and oriented to person, place and time. Answering questions appropriately and following commands. Normal gait. Good hand eye coordination. SKIN: Warm, dry and pink. No soft tissue eruptions or trauma noted. HEENT: Atraumatic and normocephalic. PERRL. Sclera white and conjunctiva pink. Oral cavity moist and pink. Pharynx is nonerythematous or edematous. Speech normal. No lymphadenopathy. Trachea midline. No jugular venous distention. BACK: No tenderness over the bony spine. No CVA tenderness. THORAX: Lungs sounds are clear to auscultation and equal bilaterally with symmetrical chest wall. No wheezing, rales or rhonchi. No crepitus, tenderness , subcutaneous air or deformities noted. HEART: Regular rate and rhythm. No gallops, rubs or murmurs are appreciated. ABDOMEN: Flat, soft and nontender. Positive bowel sounds in all quadrants. No guarding, rigidity or organomegaly. EXTREMITIES: Moves all extremities well on command and with purpose. All distal neurovascular statuses are intact and equal bilaterally. ED Course: Patient is assessed as noted above. Laboratory Testing: Radiological Testing: Patient was hydrated with normal saline, they received for pain Clinical Impression: Decision-Making: Disposition: Plan: Patient was encouraged to alternate ibuprofen and acetaminophen as needed for pain every 3 hours. Patient was encouraged to use a pad count. 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 Patient was encouraged to return to the ED if she is saturating more than 2 pads an hour, worsening pain, fevers or any new/concerning symptoms. LATE NOTE: I was informed by nursing personnel that patient removed her own IV cannula and left prior to receiving her discharge instructions. She was contacted by the charge nurse.
[2017-08-15] MEDS ORDERED: VNTHFA/IN INH (09:17)
[2017-08-15] MEDS ORDERED: LORA-741 PO (09:18)
[2017-08-25] MEDS ORDERED: CLIN300C2 PO (15:55)
[2017-09-01] MEDS ORDERED: DOCU-94 PO (08:11)
[2017-09-01] MEDS ORDERED: SULF800T23 PO (08:11)
[2017-09-01] MEDS ORDERED: OXYC-57 PO (08:11)
== END 2017-04-01 17:14 | disposition home or self-care (01) ==
LOC: C.EDB 13:53 → C.EDA 17:14
DX: R10.31 Right lower quadrant pain (principal); N93.9 Abnormal uterine and vaginal bleeding, unspecified; J45.909 Unspecified asthma, uncomplicated; Z80.0 Family history of malignant neoplasm of digestive organs; F17.200 Nicotine dependence, unspecified, uncomplicated

== ENCOUNTER 2017-07-27 21:43 | Emergency (ER) | payer OTHER ==
[~2017-07-27] VITALS: Ht 170.2 cm; Wt 176.7 kg
[2017-07-27 21:44] VITALS: TEMP 37; Ht 170.2 cm; Wt 176.7 kg
[2017-07-27] MEDS ORDERED: AMOX875T PO (21:58)
[2017-07-27] MEDS ORDERED: AMOXICILLIN/CLAVULANATE TAB 875 MG TAB PO ONE (22:00)
--- NOTE | 2017-07-27 22:01 | EMERGENCY ROOM VISIT NOTE ---
History Report prepared by Teri: Alie Dior Under the Supervision of: Dr. Baljit Duff M.D. First contact with patient: 21:48 Chief Complaint: INFECTION Stated Complaint: ABSCESS History of Present Illness The patient is a 32 year old female who presents to the Emergency Room with complaints of a worsening infection on her left breast. She reports there is an abscess on her left breast that has been getting increasingly erythematous and edematous over the past few days. She rates her pain as a 7/10. She has tried rubbing alcohol soaks and hot compresses with no relief. The patient admits to a history of hidradenitis suppurativa and notes she has experienced abscesses in her breasts before. She has never experienced an MRSA infection in the past. She also complains of a headache and fatigue. 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 A total of 10 systems reviewed and were otherwise negative. Past Medical & Surgical Medical Problems: (1) Abdominal pain (2) Abscess of breast (3) Acute bronchitis (4) Anxiety State Nos (5) Asthma (6) Body aches (7) Chest pain (8) Fatigue (9) Hidradenitis (10) Hidradenitis suppurativa of left axilla (11) Hidradenitis suppurativa of left axilla (12) Hidradenitis suppurativa of right axilla (13) HIGH VAGINAL LAC-POSTPAR (14) Influenza-like symptoms (15) Left ankle sprain (16) Morbid Obesity (17) Pharyngitis (18) Preseptal cellulitis of left eye (19) Sinusitis (20) Sty, internal (21) Thoracic spine pain (22) Urinary tract infection (23) Urinary tract infection (24) Vaginal delivery (25) Vaginal discharge in Surgical Problems: (1) History of bilateral breast reduction surgery Family History Patient reports no known family medical history. Social History Smoking Status: Current Every Day Smoker Alcohol Use: none Drug Use: none Marital Status: Housing Status: lives with family Occupation Status: employed Current/Historical Medications Scheduled Amoxicillin & Pot Clavulanate (Augmentin 875-125 mg), 875 MG PO BID Scheduled PRN Albuterol Hfa (Ventolin Hfa), 2-4 PUFFS INH Q6H PRN for SOB/Wheezing Lorazepam (Ativan), 0.5 MG PO BID PRN for Anxiety Allergies Coded Allergies: No Known Allergies (Verified , 07/27/17) Physical Exam Vital Signs Date Time Temp Pulse Resp B/P (MAP) Pulse Ox O2 Delivery O2 Flow Rate FiO2 07/27/17 21:44 37.0 106 20 134/81 97 Room Air Physical Exam GENERAL: Patient is in no acute distress. HEENT: No acute trauma, normocephalic atraumatic, mucous membranes moist, no nasal congestion, no scleral icterus. NECK: No stridor, no adenopathy, no meningismus, trachea is midline. LUNGS: Clear to auscultation bilaterally, no wheeze, no rhonchi, breath sounds equal. HEART: Without murmurs gallops or rubs, regular rate and rhythm. CHEST: There is a 5 or 6 cm area of erythema underneath the left breast. No fluctuance, no drainage, mild warmth noted. ABDOMEN: Soft, nontender, bowel sounds positive, no hernias, no peritonitis. EXTREMITIES: No cyanosis, full range of motion of all the joints without pain or difficulty, no signs for acute trauma. NEUROLOGIC: Oriented x 3, no acute motor or sensory deficits, no focal weakness. SKIN: No rash, no jaundice, no diaphoresis. Medical Decision & Procedures Medications Administered Medications (Trade) Dose Ordered Sig/Missy Route Start Time Stop Time Status Last Admin Dose Admin Amoxicillin/ Clavulanate Potassium (Augmentin Tab) 875 mg ONE ONCE PO 07/27/17 22:00 07/27/17 22:01 DC 07/27/17 22:00 875 MG ED Course 2148: The patient was evaluated in room A12B. A complete history and physical exam was performed. 2199: Augmentin Tab 875 mg PO. 2209: I reevaluated the patient. She is feeling well and resting comfortably. I discussed her discharge instructions and she verbalized complete understanding and agreement. Medical Decision The differential diagnoses considered include cellulitis, abscess, insect bite or sting and hives. The patient presents with some inferior left breast erythema. She has a history of skin abscesses. In the past, she has done well with antibiotics. Sometimes, these areas need to be drained. She does not want anything drained tonight. The patient has an area of cellulitis to the inferior left breast. There is no fluctuance or obvious drainable abscess. No drainage. She is not febrile or toxic. The patient is being placed on Augmentin. First dose given here. Reviewing past cultures, Augmentin should be a good choice. Medication Reconcilliation Current Medication List: was personally reviewed by me Blood Pressure Screening Patient's blood pressure: Normal blood pressure Blood pressure disposition: Did not require urgent referral Impression Primary Impression: Cellulitis of left breast Scribe Attestation The scribe's documentation has been prepared under my direction and personally reviewed by me in its entirety. I confirm that the note above accurately reflects all work, treatment, procedures, and medical decision making performed by me. Departure Information Dispostion Home / Self-Care Prescriptions Amoxicillin & Pot Clavulanate (Augmentin 875-125 mg) 1 Tab Tab 875 MG PO BID for 10 Days, #20 TAB Prov: Baljit Duff M.D. 07/27/17 Referrals Madeline Wallace DO (PCP) Patient Instructions My [facility] Additional Instructions augmentin 2x per day for 10 days warm compresses and or soaks to help drainage return for fever, worsening symptoms or vomiting surgical drainage may be needed if worsening as we discussed
[2017-07-27] MEDS ORDERED: EMPTY 8 DRAM VIAL ONE (22:14)
[2017-07-27 22:30] VITALS: BP 115/72; PULSE 72; O2SAT 98
[2017-07-28] MEDS ORDERED: AMOXICILLIN/CLAVULANATE TAB 875 MG TAB PO ONE (09:00)
[2017-08-15] MEDS ORDERED: VNTHFA/IN INH (09:17)
[2017-08-15] MEDS ORDERED: LORA-741 PO (09:18)
[2017-08-25] MEDS ORDERED: CLIN300C2 PO (15:55)
[2017-09-01] MEDS ORDERED: OXYC-57 PO (08:11)
[2017-09-01] MEDS ORDERED: SULF800T23 PO (08:11)
[2017-09-01] MEDS ORDERED: DOCU-94 PO (08:11)
== END 2017-07-27 22:30 | disposition home or self-care (01) ==
LOC: C.EDB 21:43 → C.EDA 22:30
DX: N61.0 Mastitis without abscess (principal); F41.9 Anxiety disorder, unspecified; J45.909 Unspecified asthma, uncomplicated; L73.2 Hidradenitis suppurativa; E66.01 Morbid (severe) obesity due to excess calories; Z87.440 Personal history of urinary (tract) infections; F17.210 Nicotine dependence, cigarettes, uncomplicated

== ENCOUNTER 2017-08-06 09:20 | Emergency (ER) | payer OTHER ==
[~2017-08-06] VITALS: Ht 170.2 cm; Wt 178.0 kg
[~2017-08-06 09:20] MED LIST changes: -CEPH500C2 PO; -CLIN300C2 PO; -DOCU-94 PO; -KETAMINE HCL INJ 50 MG/ML 10 ML VIAL ONE; -LIDOCAINE HCL 2% 2 ML VIAL (20MG/ML) ONE; -LORA-741 PO; -ONDA4TAB10 SL; -OXYC-57 PO; -PRDUDL5 PO; -PRDXLUD PO; -PROPOFOL IV EMULSION 10 MG/ML 20 ML VIAL IV ONE; -SODIUM CHLORIDE 0.9% 500ML 500 ML IV ONE; -SULF800T23 PO; -VNTHFA/IN INH
[2017-08-06 09:30] VITALS: TEMP 36.8; Ht 170.2 cm; Wt 178.0 kg
[2017-08-06] MEDS ORDERED: TRAMADOL HCL 50 MG TAB PO STA (10:57)
[2017-08-06] MEDS ORDERED: CHLORHEXIDINE GLUCONATE 0.12% 480 ML MT STA (10:57)
[2017-08-06] MEDS ORDERED: ACETAMINOPHEN 500 MG TAB PO STA (10:57)
[2017-08-06] MEDS ORDERED: IBUPROFEN 600 MG TAB PO STA (10:57)
[2017-08-06] MEDS ORDERED: CHLORHEXIDINE GLUCONATE 0.12% 15 ML UDP PO STA (10:59)
[2017-08-06 11:31] VITALS: BP 136/94; PULSE 61; O2SAT 100
[2017-08-06 11:31] LABS: BASO % 0.1 %; BASO ABS # 0.01 K/uL (0-0.2); COMPLETE YES; EOS % 1.7 %; HEMATOCRIT 42.8 % (37-47); IG% 0.4 %; LYMPH % 38.6 %; LYMPH ABS # 3.91 K/uL (1.2-3.4); MEAN CELL VOLUME 84.4 fL (80-100); MEAN PLATELET VOLUME 10.1 fL (7.4-10.4); MONO % 6.6 %; NEUT % 52.6 %; PLATELET COUNT 251 K/uL (130-400); RED BLOOD COUNT 5.07 M/uL (4.2-5.4); WHITE BLOOD COUNT 10.13 K/uL (4.8-10.8)
[2017-08-06 11:49] LABS: BUN/CREATININE RATIO 14.2 (10-20); CALCIUM 8.8 mg/dl (8.5-10.1); CREATININE 0.64 mg/dl (0.60-1.20); POTASSIUM 3.7 mmol/L (3.5-5.1)
--- NOTE | 2017-08-06 11:58 | EMERGENCY ROOM VISIT NOTE ---
History Report prepared by Teri: Maria Fernanda Bhatia Under the Supervision of: Dr. Andrea Leonardo M.D. First contact with patient: 10:15 Chief Complaint: DENTAL PAIN Stated Complaint: SEVERE TOOTHACHE Nursing Triage Summary: pt laying on bed states gum pain "hurts so bad I am going to pass out." pt states began taking amoxicillin amira night for an abscess in her breast. States no hx reaction to amoxicillin. Pt gums are purple in color, pt states gums pink in color normally. Pt describes pressure in gums and "could you please just cut them open." History of Present Illness The patient is a 32 year old female with a past medical history of abscess who presents to the ED with a cc of constant dental pain beginning 2 days ago. Pain is improved by biting down. Positive gums feeling hot and swollen. Negative falls. Source of History: patient Onset: 2 days ago Position: teeth Quality: other (pain) Timing: constant Modifying Factors (Worsening): other (biting down) Note: Pt reports gums feeling hot and swollen. Review of Systems See HPI for pertinent positives and negatives. A total of ten systems were reviewed and were otherwise negative. Past Medical & Surgical Medical Problems: (1) Abdominal pain (2) Abscess of breast (3) Acute bronchitis (4) Anxiety State Nos (5) Asthma (6) Body aches (7) Chest pain (8) Fatigue (9) Hidradenitis (10) Hidradenitis suppurativa of left axilla (11) Hidradenitis suppurativa of left axilla (12) Hidradenitis suppurativa of right axilla (13) HIGH VAGINAL LAC-POSTPAR (14) Influenza-like symptoms (15) Left ankle sprain (16) Morbid Obesity (17) Pharyngitis (18) Preseptal cellulitis of left eye (19) Sinusitis (20) Sty, internal (21) Thoracic spine pain (22) Urinary tract infection (23) Urinary tract infection (24) Vaginal delivery (25) Vaginal discharge in Surgical Problems: (1) History of bilateral breast reduction surgery Family History Patient reports no known family medical history. Social History Smoking Status: Current Every Day Smoker Alcohol Use: none Drug Use: none Marital Status: Housing Status: lives with family Occupation Status: employed Current/Historical Medications Scheduled Amoxicillin & Pot Clavulanate (Augmentin 875-125 mg), 875 MG PO BID Chlorhexidine Gluconate (Peridex Oral Soln), 5 ML PO BID Scheduled PRN Albuterol Hfa (Ventolin Hfa), 2-4 PUFFS INH Q6H PRN for SOB/Wheezing Lorazepam (Ativan), 0.5 MG PO BID PRN for Anxiety Allergies Coded Allergies: No Known Allergies (Verified , 07/27/17) Physical Exam Vital Signs Date Time Temp Pulse Resp B/P (MAP) Pulse Ox O2 Delivery O2 Flow Rate FiO2 08/06/17 11:31 61 16 136/94 100 08/06/17 09:30 36.8 94 18 151/86 99 Room Air Physical Exam GENERAL: Obese, awake, alert, well-appearing, NAD HENT: Normocephalic, atraumatic. No swelling noted along the mandibular or maxillary teeth, no gingival bleeding, dentition appears well, no sublingual swelling or pain, posterior pharynx clear, no swelling or exudate. Handling secretions. EYES: Normal conjunctiva. Sclera non-icteric. NECK: Supple. No nuchal rigidity. FROM. No stridor. RESPIRATORY: CTAB, no rhonchi, wheezing, crackles CARDIAC: RRR, no MRG ABDOMEN: Soft, NTND, BS+ MSK: No chest wall TTP, no LE edema NEURO: GCS 15, CN 2-12 intact, moves all 4s on command SKIN: No rash or jaundice noted. Medical Decision & Procedures Laboratory Results 08/06/17 11:15 Red Blood Count 5.07, Mean Corpuscular Volume 84.4, Mean Corpuscular Hemoglobin 27.0, Mean Corpuscular Hemoglobin Concent 32.0, Mean Platelet Volume 10.1, Neutrophils (%) (Auto) 52.6, Lymphocytes (%) (Auto) 38.6, Monocytes (%) (Auto) 6.6, Eosinophils (%) (Auto) 1.7, Basophils (%) (Auto) 0.1, Neutrophils # (Auto) 5.33, Lymphocytes # (Auto) 3.91, Monocytes # (Auto) 0.67, Eosinophils # (Auto) 0.17, Basophils # (Auto) 0.01 08/06/17 11:15 Test 08/06/17 11:15 White Blood Count 10.13 K/uL (4.8-10.8) Red Blood Count 5.07 M/uL (4.2-5.4) Hemoglobin 13.7 g/dL (12.0-16.0) Hematocrit 42.8 % (37-47) Mean Corpuscular Volume 84.4 fL (80-100) Mean Corpuscular Hemoglobin 27.0 pg (25-34) Mean Corpuscular Hemoglobin Concent 32.0 g/dl (32-36) Platelet Count 251 K/uL (130-400) Mean Platelet Volume 10.1 fL (7.4-10.4) Neutrophils (%) (Auto) 52.6 % Lymphocytes (%) (Auto) 38.6 % Monocytes (%) (Auto) 6.6 % Eosinophils (%) (Auto) 1.7 % Basophils (%) (Auto) 0.1 % Neutrophils # (Auto) 5.33 K/uL (1.4-6.5) Lymphocytes # (Auto) 3.91 K/uL (1.2-3.4) Monocytes # (Auto) 0.67 K/uL (0.11-0.59) Eosinophils # (Auto) 0.17 K/uL (0-0.5) Basophils # (Auto) 0.01 K/uL (0-0.2) RDW Standard Deviation 40.4 fL (36.4-46.3) RDW Coefficient of Variation 13.3 % (11.5-14.5) Immature Granulocyte % (Auto) 0.4 % Immature Granulocyte # (Auto) 0.04 K/uL (0.00-0.02) Anion Gap 4.0 mmol/L (3-11) Est Creatinine Clear Calc Drug Dose 219.5 ml/min Estimated GFR () 138.8 Estimated GFR (Non- 119.7 BUN/Creatinine Ratio 14.2 (10-20) Calcium Level 8.8 mg/dl (8.5-10.1) Laboratory results reviewed by me Medications Administered Medications (Trade) Dose Ordered Sig/Missy Route Start Time Stop Time Status Last Admin Dose Admin Ibuprofen (Motrin Tab) 600 mg NOW STAT PO 08/06/17 10:57 08/06/17 10:58 DC 08/06/17 10:57 600 MG Acetaminophen (Tylenol Tab) 1,000 mg NOW STAT PO 08/06/17 10:57 08/06/17 10:58 DC 08/06/17 10:57 1,000 MG Tramadol HCl (Ultram Tab) 50 mg NOW STAT PO 08/06/17 10:57 08/06/17 10:58 DC 08/06/17 10:57 50 MG Chlorhexidine Gluconate (Peridex Oral Soln 15ML Udp) 15 ml NOW STAT PO 08/06/17 10:59 08/06/17 11:00 DC 08/06/17 10:59 15 ML ED Course 1051: The patient was evaluated in room A4A. A complete history and physical exam was performed. 1237: I reevaluated the patient. I discussed results and discharge instructions : She verbalized understanding and agreement. The patient is ready for discharge. Medical Decision Differential diagnosis: dental sensitivity, cavity, infection, diabetic. The patient is a 32 year old female with a past medical history of abscess who presents to the ED with a cc of constant dental pain beginning 2 days ago. Patient was seen and evaluated at the bedside. Patient has no known history of diabetes. On exam patient did not have any submental or sublingual swelling. Patient's dentition appeared well. Patient denied any smoking. Patient does have a dentist appointment later today. Posterior pharynx is clear. Patient's blood work is fairly unremarkable. Patient was given pain medication as well as Peridex which improved her pain. Patient was told to continue to avoid smoking and alcohol and to follow-up with her dentist this afternoon. Patient was given strict follow-up, discharge, return precautions. Patient agreed with plan of care patient was safely discharged home. Medication Reconcilliation Current Medication List: was personally reviewed by me Blood Pressure Screening Patient's blood pressure: Normal blood pressure Blood pressure disposition: Did not require urgent referral Impression Primary Impression: Mouth pain Scribe Attestation The scribe's documentation has been prepared under my direction and personally reviewed by me in its entirety. I confirm that the note above accurately reflects all work, treatment, procedures, and medical decision making performed by me. Departure Information Dispostion Home / Self-Care Prescriptions Chlorhexidine Gluconate (PERIDEX ORAL SOLN) 480 Ml Soln 5 ML PO BID for 10 Days, #100 ML Prov: Andrea Leonardo M.D. 9/13/17 Referrals Madeline Wallace DO (PCP) Patient Instructions Benzocaine mouth gel ointment solution or dental paste, My [facility] [employer] Additional Instructions Please return to the emergency department if you have worsening or recurrent symptoms not amenable to at-home treatment. Please call for a follow-up appointment with her primary care physician. Please take your medications as prescribed. If you have other concerns and/or complaints please feel free to also call your primary care physician's office or return the ED for further evaluation, management, and treatment. You were found to have an elevated blood pressure today (>120 sytolic or >90 diastolic). Per medicare guidelines, you need to follow up with this blood pressure screening with your Primary Care Physician (PCP). For a new PCP call [phone]. You received narcotic or benzodiazepene medication while in the emergency room today. This is an addictive medication that may cause drowziness as well as constipation. Do not drive, operate heavy machinery, or drink alcohol under the influence of this medication. You may take 600 mg Ibuprofen every 6 hours as needed for pain with food for no more than 2 consecutive days. You may take tylenol 1000mg every 6 hours as needed for pain. You may take motrin and tylenol separately or at the same time. Use peridex as needed for discomfort as prescribed. Please f/u with your dentist. You have been examined and treated today on an emergency basis only. This is not a substitute for, or an effort to provide, complete comprehensive medical care. It is impossible to recognize and treat all injuries or illnesses in a single emergency department visit. It is therefore important that you follow up closely with [facility]. Call as soon as possible for an appointment. Thank you for your time and consideration. I look forward to speaking with you again soon. Please don't hesitate to call us if you have any questions. Work Instructions Return To Work: 1 day
[2017-08-06] MEDS ORDERED: PRDXLUD PO (12:29)
--- NOTE | 2017-08-06 13:57 | Pharmacy Progress Note ---
ED Pharmacist Progress Note Date of Service: Aug 06, 2017. Pharmacist Anshul called from [email or web address] asking if Rx for Peridex could be changed to dispense one full bottle (473mL) rather than 100mL. OK to change to full bottle per Dr Leonardo.
[2017-08-15] MEDS ORDERED: VNTHFA/IN INH (09:17)
[2017-08-15] MEDS ORDERED: LORA-741 PO (09:18)
[2017-08-25] MEDS ORDERED: CLIN300C2 PO (15:55)
[2017-09-01] MEDS ORDERED: SULF800T23 PO (08:11)
[2017-09-01] MEDS ORDERED: OXYC-57 PO (08:11)
[2017-09-01] MEDS ORDERED: DOCU-94 PO (08:11)
== END 2017-08-06 12:36 | disposition home or self-care (01) ==
LOC: C.EDB 09:25 → C.EDA 12:36
DX: K08.89 Other specified disorders of teeth and supporting structures (principal); F41.9 Anxiety disorder, unspecified; J45.909 Unspecified asthma, uncomplicated; E66.01 Morbid (severe) obesity due to excess calories; Z68.44 Body mass index [BMI] 60.0-69.9, adult; Z87.440 Personal history of urinary (tract) infections; F17.210 Nicotine dependence, cigarettes, uncomplicated

== ENCOUNTER 2017-08-15 21:56 | Emergency (ER) | payer OTHER ==
[~2017-08-15 21:56] MED LIST changes: -AMOX875T PO; +LORA-741 PO; +PRDXLUD PO; +VNTHFA/IN INH
[2017-08-15 22:04] VITALS: BP 170/89; PULSE 103; TEMP 37; O2SAT 98; Ht 170.2 cm
[2017-08-15] MEDS ORDERED: LIDOCAINE/EPINEPHRINE 1% 20 ML VIAL INFIL ONE (22:15)
--- NOTE | 2017-08-15 22:47 | EMERGENCY ROOM VISIT NOTE ---
History First contact with patient: 22:06 Chief Complaint: INFECTION Stated Complaint: ABSCESS ON BACK/BUTT Nursing Triage Summary: pt c/o pain to coxyc region History of Present Illness The patient is a 32 year old female who presents to the Emergency Room with complaints of an abscess on her tailbone area. The patient states that she has had pain in her tailbone region for the past one week. She rates the discomfort a 10/10. The patient has had abscesses before and believes she has one at this point. She started taking Bactrim this morning and has taken 2 doses. This was prescribed by her primary care provider due to her history of abscesses in the patient states that she takes this whenever she feels an abscess coming on. She denies any drainage from the area. She denies any fevers/chills. Review of Systems A complete 10 point review of systems was reviewed with the patient with pertinent positives and negatives as per history of present illness. All else were negative. Past Medical/Surgical History Medical Problems: (1) Abdominal pain (2) Abscess of breast (3) Acute bronchitis (4) Anxiety State Nos (5) Asthma (6) Body aches (7) Chest pain (8) Fatigue (9) Hidradenitis (10) Hidradenitis suppurativa of left axilla (11) Hidradenitis suppurativa of left axilla (12) Hidradenitis suppurativa of right axilla (13) HIGH VAGINAL LAC-POSTPAR (14) Influenza-like symptoms (15) Left ankle sprain (16) Morbid Obesity (17) Pharyngitis (18) Preseptal cellulitis of left eye (19) Sinusitis (20) Sty, internal (21) Thoracic spine pain (22) Urinary tract infection (23) Urinary tract infection (24) Vaginal delivery (25) Vaginal discharge in Surgical Problems: (1) History of bilateral breast reduction surgery Family History Patient reports no known family medical history. Social History Smoking Status: Current Every Day Smoker Alcohol Use: none Drug Use: none Marital Status: Housing Status: lives with family Occupation Status: employed Current/Historical Medications Scheduled Chlorhexidine Gluconate (Chlorhexidine Gluconate), 5 ML PO BID Sulfa/Trimethoprim (Bactrim Ds 800MG/160MG), 1 TAB PO BID Scheduled PRN Albuterol Hfa (Ventolin Hfa), 2 PUFFS INH Q6H PRN for SOB/Wheezing Lorazepam (Ativan), 0.5 MG PO BID PRN for Anxiety Physical Exam Vital Signs Date Time Temp Pulse Resp B/P (MAP) Pulse Ox O2 Delivery O2 Flow Rate FiO2 08/15/17 22:04 37.0 103 20 170/89 98 Room Air Physical Exam VITALS: Vitals are noted on the nurse's note and reviewed by myself. Vital signs stable. GENERAL: This is a 32-year-old female, anxious appearing, well-developed well- nourished. SKIN: There is mild erythema, induration and fluctuance to the left of the gluteal cleft. There is no pointing or drainage. HEART: Regular rate and rhythm without murmurs gallops or rubs. LUNGS: Clear to auscultation bilaterally without wheezes, rales or rhonchi. NEURO: Patient was alert and oriented to person place and time. Medical Decision & Procedures Medications Administered Medications (Trade) Dose Ordered Sig/Missy Route Start Time Stop Time Status Last Admin Dose Admin Oxycodone HCl (Roxicodone Immediate Rel 5MG Home Pack) 1 homepack UD ONCE PO 08/15/17 23:00 08/15/17 23:01 DC 08/15/17 22:56 1 HOMEPACK Procedure Verbal consent was obtained to perform the procedure. After saline and Betadine cleansing and 4 mL of 1% buffered lidocaine anesthesia, the abscess was incised with a number 11 scalpel blade. A large amount of purulent material was released with more expressed by pressure. A swab was obtained for culture. The abscess cavity was further probed with a needle oil transport driver and the deep pocket expressed. The abscess cavity was then copiously irrigated with sterile saline under pressure. The area was then packed. The area was cleaned with sterile saline and dressed with bacitracin and a bulky bandage. The patient tolerated the procedure well. Medical Decision Differential diagnosis includes cellulitis, abscess, among others. The patient was evaluated as above. Exam is consistent with a pilonidal abscess. Incision and drainage was performed as noted in the procedure section. The patient tolerated the procedure well. She was given a home pack of OxyIR for pain. She is taking Bactrim at home and was instructed to continue this pending culture results. She was given referral information for a general surgeon for elective removal of the abscess pocket. The patient was instructed to return or go to her primary care provider for packing removal. She verbalized understanding of my assessment and treatment plan and was discharged home in good condition. Medication Reconcilliation Current Medication List: was personally reviewed by me Blood Pressure Screening Patient's blood pressure: Elevated blood pressure Blood pressure disposition: Elevated BP felt to be situational Impression Primary Impression: Pilonidal abscess Departure Information Dispostion Home / Self-Care Condition GOOD Referrals Madeline Wallace, (PCP) El Fonseca M.D. Patient Instructions ED Cyst Pilonidal Infected [place], [facility] Additional Instructions You were seen in the Emergency Department for Incision and Drainage of your pilonidal abscess. You will NEED to return to the Emergency Department to have the packing removed/changed in 48 hours. This packing is NOT dissolvable and WILL need to be removed by a health care provider. Try to leave the packing in place until you return to the Emergency Department. Follow up with general surgery (Dr. Fonseca) as desired for removal of the abscess pocket. Continue the Bactrim as prescribed. Proper wound care is essential for adequate wound healing and infection prevention. You can shower and clean the wound with soap and water. Do not scour over the wound. Pat dry with a towel. Do not submerse the wound (i.e. bathe or dish wash) until the sutures have been removed. You can use an antibiotic ointment with a dressing over the wound for the next 3-4 days. After this time you may leave the wound dry and open to the air. If crust develops over the wound you can use a Q-tip to apply a 1:1 peroxide:water solution to clean the wound. Look for signs of infection of the wound including: increased pain, swelling, foul discharge, streaking, or increased temperature. If any of these are noticed you should return to the Emergency Department for further assessment and treatment. As with any laceration you may have received nerve damage to the surrounding tissues. This damage may or may not be permanent. For pain control, you can use the following [id number] medicines (if >12 yo): - Regular strength (325mg/tab) Tylenol (acetaminophen) 2 tabs every 4-6 hours as needed. Do not exceed 12 tablets in a 24 hour period. Avoid taking more than 4 grams (4000 mg) of Tylenol per day. This includes any other sources of acetaminophen you may take on a regular basis. - Regular strength (200 mg/tab) Advil (ibuprofen) 1-2 tabs every 4-6 hours as needed. Do not exceed a dose of 3200 mg per day. Return to the emergency department if your symptoms worsen despite treatment course outlined above.
[2017-08-15] MEDS ORDERED: PRDUDL5 PO (22:54)
[2017-08-15] MEDS ORDERED: SULF800T23 PO (22:54)
[2017-08-15] MEDS ORDERED: OXYCODONE IR HOME PACK PO ONE (23:00)
[2017-08-25] MEDS ORDERED: CLIN300C2 PO (15:55)
[2017-09-01] MEDS ORDERED: SULF800T23 PO (08:11)
[2017-09-01] MEDS ORDERED: DOCU-94 PO (08:11)
[2017-09-01] MEDS ORDERED: OXYC-57 PO (08:11)
== END 2017-08-15 23:01 | disposition home or self-care (01) ==
LOC: C.EDB 21:57 → C.EDC 23:01
DX: L05.01 Pilonidal cyst with abscess (principal); F41.9 Anxiety disorder, unspecified; J45.909 Unspecified asthma, uncomplicated; E66.9 Obesity, unspecified; F17.200 Nicotine dependence, unspecified, uncomplicated

== ENCOUNTER → 2017-09-01 | Day surgery (SDC) | payer OTHER ==
[2017-08-25 15:41] VITALS: BMI 62.0
[~2017-09-01] VITALS: Ht 170.2 cm; Wt 180.5 kg
[~2017-09-01] MED LIST changes: +ALBUT/IPRATROP 3MG/0.5MG NEB 3 ML VIAL INH SCH; +ALBUTEROL HFA INHALER 8.5 GM INH ONE; +ATROPINE SULFATE 0.1 MG/ML 5ML SYR IV PRN; +BACITRACIN OINT 15 GM TUBE ONE; +BUPIVACAINE 0.5 % 5 MG/1 ML MPF 30ML VIAL ONE; +CLIN300C2 PO; +CLINDAMYCIN IV 900 MG in DEXTROSE 5% 100ML 100 ML IV ONE; +CLINDAMYCIN IV 900 MG in DEXTROSE 5% 100ML 100 ML IV SCH; +DEXAMETHASONE SOD INJ 4 MG/ML VIAL ONE; +DOCU-94 PO; +EpHEDrine SULFATE INJ 50 MG/ML AMP IV PRN; +FENTANYL CITRATE INJ 50 MCG/1 ML 2 ML VIAL IV PRN; +FENTANYL CITRATE INJ 50 MCG/1 ML 2 ML VIAL ONE; +LACTATED RINGER'S 1000ML 1,000 ML IV SCH; +LIDOCAINE HCL 1% 20 ML VIAL ONE; +LIDOCAINE HCL 2% 2 ML VIAL (20MG/ML) ONE; +MIDAZOLAM HCL 1 MG/ML 2ML VIAL ONE; +MoRPHine SULFATE 4 MG/ML 1 ML CARP\\VIAL IV PRN; +ONDANSETRON INJ 2 MG/ML 2 ML VIAL IV PRN; +ONDANSETRON INJ 2 MG/ML 2 ML VIAL ONE; +OXYC-57 PO; +OXYCODONE/ACETAMINOPHEN 5-325 TAB ONE; +OXYCODONE/ACETAMINOPHEN 5-325 TAB PO PRN; -PRDXLUD PO; +PROPOFOL IV EMULSION 10 MG/ML 20 ML VIAL IV ONE; +ROCURONIUM BROMIDE 10 MG/ML 5 ML VIAL IV ONE; +SODIUM CHLORIDE 0.9% 1000ML 1,000 ML IV SCH; +SUCCINYLCHOLINE CHLORIDE 20 MG/ML 10 ML VIAL IV ONE; +SULF800T23 PO
[2017-09-01 05:45] VITALS: BP 138/68; PULSE 91; TEMP 36.6; O2SAT 96; Ht 170.2 cm; Wt 180.5 kg
--- NOTE | 2017-09-01 07:08 | History & Physical Bridge Note ---
H&P Re-Evaluation Bridge Note: I have examined the patient, reviewed the History & Physical and in the interval since the performance of the History & Physical I have noted the following changes of clinical significance: No changes noted
--- NOTE | 2017-09-01 08:05 | [facility] Post Operative Brief Note ---
Immediate Operative Summary Operative Date Sep 01, 2017. Pre-Operative Diagnosis Pilonidal Cyst Post-Operative Diagnosis Pilonidal Cyst Procedure(s) Performed Excision of Pilonidal Cyst Surgeon Dr. Gillian Rachel Web Merchandiser Surgeon(s) none Estimated Blood Loss 10mL Findings pilonidal cyst Fluids (cc crystalloids) 500ml Specimens A:Pilonidal Cyst Drains none Anesthesia general Complication(s) None Disposition Recovery Room / PACU
--- NOTE | 2017-09-01 08:15 | Discharge Instructions ---
Discharge Instructions Date of Service Sep 01, 2017. Visit Reason for Visit: Pilonidal Cyst Discharge Discharge Diagnosis / Problem: S/P resection pilonidal cyst Discharge Goals Goal(s): Decrease discomfort, Improve function Activity Recommendations Activity Limitations: per Instructions/Follow-up section Lifting Limitations: none Exercise/Sports Limitations: rest today May Resume Sexual Activity: when tolerated Shower/Bathe: may shower/bathe in 3 days Driving or Machine Use: resume 3 days after discharge Anesthesia . Post Anesthesia Instructions: If you have had General Anesthesia or IV Sedation: * Do not drive today. * Resume driving when surgeon permits. * Do not make important decisions or sign legal documents today. * Call surgeon for: 1. Temperature elevations greater than 101 degrees F. 2. Uncontrollable pain. 3. Excessive bleeding. 4. Persistent nausea and vomiting. 5. Medication intolerance (nausea, vomiting or rash). * For nausea and vomiting use only clear liquids such as: tea, soda, bouillon until nausea subsides, then gradually increase diet as tolerated. * If you have any concerns or questions, call your surgeon's office. If physician is unavailable and it is an emergency, call 911 or go to the nearest emergency room. . Instructions / Follow-Up Instructions / Follow-Up Keep the dressing on for 4 days, she can take a shower on 09/06/2017, no driving while taking pain medicine. follow up 1 week,[phone] Diet Recommendations Recommended Home Diet: resume previous diet Procedures Procedures Performed: Excision of Pilonidal Cyst Pending Studies Studies pending at discharge: no Medical Emergencies . Who to Call and When: Medical Emergencies: If at any time you feel your situation is an emergency, please call 911 immediately. . Non-Emergent Contact Non-Emergency issues call your: Surgeon Call Non-Emergent contact if: you have a fever, temperature is above 100.5, your pain is not controlled, your pain is worsening, wound has increased drainage, wound has increased redness . . "Provider Documentation" section prepared by Brielle Rachel. . [place] Drug Monitoring Program Search Results: no issues identified
[2017-09-01 08:39] VITALS: PULSE 80; O2SAT 99
[2017-09-01 09:00] VITALS: BP 159/92; PULSE 81; TEMP 36.8; O2SAT 97
--- NOTE | 2017-09-01 09:06 | Anesthesiology Progress Note ---
Anesthesia Post Op Note Date & Time Sep 01, 2017 at 09:06 Vital Signs Pain Intensity: 2 Vital Signs Past 12 Hours Date Time Temp Pulse Resp B/P (MAP) Pulse Ox O2 Delivery O2 Flow Rate FiO2 09/01/17 08:45 36.5 82 18 144/90 97 Room Air Oxymask 09/01/17 08:39 80 18 99 Mask 6.0 09/01/17 08:35 82 18 140/95 99 Oxymask 8 Nebulizer 09/01/17 08:25 88 16 134/92 99 Oxymask 8 09/01/17 08:15 36.4 86 16 141/93 99 Oxymask 8 09/01/17 05:45 36.6 91 20 138/68 (91) 96 Room Air Notes Mental Status: alert / awake / arousable, participated in evaluation Pt Amnestic to Procedure: Yes Nausea / Vomiting: adequately controlled Pain: adequately controlled Airway Patency, RR, SpO2: stable & adequate BP & HR: stable & adequate Hydration State: stable & adequate Anesthetic Complications: no major complications apparent
[2017-09-01 09:31] VITALS: BP 156/73; PULSE 82; O2SAT 94
[2017-09-01 10:03] VITALS: BP 126/63; PULSE 78; TEMP 36.6; O2SAT 94
--- NOTE | 2017-09-01 10:13 | OPERATIVE REPORT ---
DATE OF OPERATION: 09/01/2017 PREOPERATIVE DIAGNOSES: Pilonidal cyst. POSTOPERATIVE DIAGNOSIS: Resection of pilonidal cyst. SURGEON: Brielle TIJERINA MD. ANESTHESIA: General. ESTIMATED BLOOD LOSS: About 10 mL. FINDING: Pilonidal cyst. COMPLICATIONS: None. INDICATIONS FOR THE PROCEDURE: This is a 32-year-old female who presented with symptomatic pilonidal cyst and patient had some drainage from the pilonidal cyst. Patient already finished her p.o. antibiotic treatments for infection and now patient required to do a resection of the pilonidal cyst. I did talk to the patient about the benefit and risk, alternate procedure. I indicated the risks may include but not limited such as bleeding, infection, recurrence, may need more procedure, unhealing wound, chronic pain. The patient understands. She signed informed consent. I answered all questions. DETAILS OF PROCEDURE: We brought the patient to the OR. The patient received SCD on bilateral legs to prevent DVT. Also, the patient received 900 mg of clindamycin IV for prophylactic antibiotic. The patient received general anesthesia without difficulty. Then we repositioned on the common position. The patient's lower back area was prepped and draped in usual sterile fashion. After a timeout, using 15 blade completely removed the pilonidal cyst deep to the subcutaneous layer. Hemostasis was obtained. Then I used 2-0 Vicryl to close subcutaneous layer, interrupted and then I used 2-0 Prolene interrupted to close first skin layer. Then I used another 3-0 nylon and closed the skin interrupted and then we put the dressing on. The patient tolerated the procedure well. Also, we injected the local anesthesia by using 1% lidocaine mixed with 0.5% Marcaine before we closed the incision. Once we put the dressing on, the patient tolerated the procedure well. All instrument, needle and sponge count were correct x2 at the end of case. The patient transferred to recovery room in stable condition. After the procedure, I did talk to the patient's family member about OR finding and procedure we did, they understand. Also, I gave them the postop care instruction, they understand. I attest to the content of the Intraoperative Record and any orders documented therein. Any exceptions are noted below. BEE
== END | disposition home or self-care (01) ==
LOC: C.ACU 05:15
PROVIDERS: ATTEND Surgery
DX: L05.91 Pilonidal cyst without abscess (principal); J45.909 Unspecified asthma, uncomplicated; E66.01 Morbid (severe) obesity due to excess calories; Z68.44 Body mass index [BMI] 60.0-69.9, adult; Z98.890 Other specified postprocedural states; F17.200 Nicotine dependence, unspecified, uncomplicated; Z83.3 Family history of diabetes mellitus; Z82.5 Family history of asthma and other chronic lower respiratory diseases

== ENCOUNTER 2017-09-07 00:28 | Emergency (ER) | payer OTHER ==
[~2017-09-07] VITALS: Ht 170.2 cm; Wt 167.7 kg
[~2017-09-07 00:28] MED LIST changes: -ALBUT/IPRATROP 3MG/0.5MG NEB 3 ML VIAL INH SCH; -ALBUTEROL HFA INHALER 8.5 GM INH ONE; -ATROPINE SULFATE 0.1 MG/ML 5ML SYR IV PRN; -BACITRACIN OINT 15 GM TUBE ONE; -BUPIVACAINE 0.5 % 5 MG/1 ML MPF 30ML VIAL ONE; -CLIN300C2 PO; -CLINDAMYCIN IV 900 MG in DEXTROSE 5% 100ML 100 ML IV ONE; -CLINDAMYCIN IV 900 MG in DEXTROSE 5% 100ML 100 ML IV SCH; -DEXAMETHASONE SOD INJ 4 MG/ML VIAL ONE; -EpHEDrine SULFATE INJ 50 MG/ML AMP IV PRN; -FENTANYL CITRATE INJ 50 MCG/1 ML 2 ML VIAL IV PRN; -FENTANYL CITRATE INJ 50 MCG/1 ML 2 ML VIAL ONE; -LACTATED RINGER'S 1000ML 1,000 ML IV SCH; -LIDOCAINE HCL 1% 20 ML VIAL ONE; -LIDOCAINE HCL 2% 2 ML VIAL (20MG/ML) ONE; -MIDAZOLAM HCL 1 MG/ML 2ML VIAL ONE; -MoRPHine SULFATE 4 MG/ML 1 ML CARP\\VIAL IV PRN; -ONDANSETRON INJ 2 MG/ML 2 ML VIAL IV PRN; -ONDANSETRON INJ 2 MG/ML 2 ML VIAL ONE; -OXYC-57 PO; -OXYCODONE/ACETAMINOPHEN 5-325 TAB ONE; -OXYCODONE/ACETAMINOPHEN 5-325 TAB PO PRN; -PROPOFOL IV EMULSION 10 MG/ML 20 ML VIAL IV ONE; -ROCURONIUM BROMIDE 10 MG/ML 5 ML VIAL IV ONE; -SODIUM CHLORIDE 0.9% 1000ML 1,000 ML IV SCH; -SUCCINYLCHOLINE CHLORIDE 20 MG/ML 10 ML VIAL IV ONE
[2017-09-07 00:32] VITALS: TEMP 36.8; Ht 170.2 cm; Wt 167.7 kg
[2017-09-07] MEDS ORDERED: CEPH500C2 PO (00:59)
[2017-09-07] MEDS ORDERED: ONDA4TAB10 SL (00:59)
[2017-09-07] MEDS ORDERED: CEPHALEXIN 500MG HOME PACK 1 EA BTL PO ONE (01:00)
[2017-09-07] MEDS ORDERED: ONDANSETRON HOME PACK 4MG OD TAB PO ONE (01:00)
[2017-09-07 01:12] VITALS: BP 144/81; PULSE 91; O2SAT 97
--- NOTE | 2017-09-07 05:08 | EMERGENCY ROOM VISIT NOTE ---
History First contact with patient: 00:38 Chief Complaint: OTHER COMPLAINT Stated Complaint: DRAINAGE FROM SURGERY SITE History of Present Illness The patient is a 32 year old female who presents to the Emergency Room with complaints of drainage from her pilonidal cyst incisional site. Patient states she had her pilonidal tract removed last week by Dr. Rachel. Patient states she' s been taking her Bactrim as directed. Patient states today she noticed increased drainage to the area. Patient denies fevers, purulent discharge, vomiting, diarrhea, feeling chilled. She is tolerate by mouth fluids and food. Review of Systems See HPI for pertinent positives & negatives. A total of 6 systems reviewed and were otherwise negative. Past Medical/Surgical History Medical Problems: (1) Abdominal pain (2) Abscess of breast (3) Acute bronchitis (4) Anxiety State Nos (5) Asthma (6) Body aches (7) Chest pain (8) Fatigue (9) Hidradenitis (10) Hidradenitis suppurativa of left axilla (11) Hidradenitis suppurativa of left axilla (12) Hidradenitis suppurativa of right axilla (13) HIGH VAGINAL LAC-POSTPAR (14) Influenza-like symptoms (15) Left ankle sprain (16) Morbid Obesity (17) Pharyngitis (18) Preseptal cellulitis of left eye (19) Sinusitis (20) Sty, internal (21) Thoracic spine pain (22) Urinary tract infection (23) Urinary tract infection (24) Vaginal delivery (25) Vaginal discharge in Surgical Problems: (1) History of bilateral breast reduction surgery Family History Patient reports no known family medical history. Social History Smoking Status: Current Every Day Smoker Alcohol Use: none Drug Use: none Marital Status: Housing Status: lives with family Occupation Status: employed Current/Historical Medications Scheduled Cephalexin Monohydrate (Keflex), 500 MG PO QID Docusate Sodium (Colace), 1 CAP PO BID Ondasetron Odt (Zofran Odt), 4 MG SL Q6H Sulfamethoxazole-Trimethoprim (Bactrim Ds 800MG/160MG), 1 TAB PO BID Scheduled PRN Albuterol Hfa (Ventolin Hfa), 2 PUFFS INH Q6H PRN for SOB/Wheezing Lorazepam (Ativan), 0.5 MG PO BID PRN for Anxiety Physical Exam Vital Signs Date Time Temp Pulse Resp B/P (MAP) Pulse Ox O2 Delivery O2 Flow Rate FiO2 09/07/17 01:12 91 20 144/81 97 09/07/17 00:32 36.8 106 18 143/89 97 Room Air Physical Exam VITALS: Vitals are noted on the nurse's note and reviewed by myself. Vital signs stable. GENERAL: Pleasant female, in no acute distress, nondiaphoretic, well-developed well-nourished. SKIN: Capillary reflex less than 2 seconds. HEENT: Normocephalic. PERRLA. EOMI. Nares patent. Mucous membranes moist. Neck is supple without nuchal rigidity. HEART: Regular rate and rhythm without murmurs gallops or rubs. LUNGS: Clear to auscultation bilaterally without wheezes, rales or rhonchi. No retractions or accessory muscle use. ABDOMEN: Positive bowel sounds x 4. Normal tympanic percussion. Soft, protuberant, obese, nontender, without masses or organomegaly. Ho sign negative. No guarding or rebound tenderness. Rectal exam: Pilonidal incisional tract intact with stitches with minimal serosanguineous discharge without purulent discharge. No erythema. No fluctuants. [employer] Work[employer] present. MUSCULOSKELETAL: No gross musculoskeletal defects. NEURO: Patient was alert and oriented to person place and time. No focal neurological deficits. Medical Decision & Procedures Medications Administered Medications (Trade) Dose Ordered Sig/Missy Route Start Time Stop Time Status Last Admin Dose Admin Cephalexin Monohydrate (Keflex 500MG Home Pack) 1 homepack NOW ONCE PO 09/07/17 01:00 09/07/17 01:01 DC 09/07/17 01:07 1 HOMEPACK Ondansetron HCl (ZOFRAN ODT 4MG Home Pack) 1 homepack UD ONCE PO 09/07/17 01:00 09/07/17 01:01 DC 09/07/17 01:07 1 HOMEPACK ED Course Prior records reviewed and summarized as above. Triage Nursing notes reviewed. Additional history obtained from family The patient's history was concerning for drainage from incisional site. Differential diagnosis: Etiologies such as cellulitis, abscess, MRSA infection, postsurgical complication, as well as others were entertained.. Physical examination: The physical examination was consistent with postsurgical drainage ER treatment provided: Keflex On reassessment the patient felt better. Diagnostics interpreted by me: Deferred This appears to be isolated postsurgical drainage from recent pilonidal cyst removal. Patient no signs of abscess. It was not fluctuant. There is no erythema. It was malodorous. Patient was advised to follow-up in a few days with her surgeon and to take medications as directed. She is currently on Bactrim and I did adding Keflex for extra coverage. She was advised to keep the area dry and clean. She is advised to return to ER immediately for fevers, purulent discharge, worsening signs or symptoms or as needed.. By the evaluation outlined above emergent etiologies such as abscess, necrotizing fasciitis, as well as others were deemed relatively unlikely. The pt informed about the findings as listed above. All questions were answered and pleased with the treatment. Return instructions were outlined and the patient was discharged in stable condition. Outpatient prescription management: Keflex, Zofran Referral: The patient was referred back to surgeon and/or primary care physician for follow-up in 2 to 3 days for a recheck of the current condition. Medical Decision As above Medication Reconcilliation Current Medication List: was personally reviewed by me Blood Pressure Screening Patient's blood pressure: Normal blood pressure Impression Primary Impression: Drainage from wound Additional Impression: Nausea Departure Information Dispostion Home / Self-Care Condition GOOD Prescriptions Ondasetron Odt (ZOFRAN ODT) 4 Mg Tab 4 MG SL Q6H, #15 TAB Prov: Margo Gracia .EDEL 09/07/17 Cephalexin Monohydrate (KEFLEX) 500 Mg Cap 500 MG PO QID for 9 Days, #36 CAP Prov: Margo Gracia .EDEL 09/07/17 Forms WORK / SCHOOL INSTRUCTIONS, HOME CARE DOCUMENTATION FORM, IMPORTANT VISIT INFORMATION Patient Instructions [facility] Additional Instructions Continue frequent dressing changes to her surgical site. Zofran 4 m tablet every 6 hours as needed for nausea and/or vomiting. Cephalexin(Keflex) 500mg: Take one pill four times daily for 10 days for your skin infection. All antibiotics can cause diarrhea. If this occurs and you feel worse or it does not resolve in 1-2 days follow up with your doctor or return to the Emergency Department as this could be signs of serious underlying problems. Any medication can cause an allergic reaction, stop the pills immediately and return to the ER for rash, hives, breathing difficulties, or swelling. Continue your: Trimethoprim-Sulfamethoxazole(Bactrim DS): Take one pill twice daily for 10 days for your skin infection. All antibiotics can cause diarrhea. If this occurs and you feel worse or it does not resolve in 1-2 days follow up with your doctor or return to the Emergency Department as this could be signs of serious underlying problems. Any medication can cause an allergic reaction, stop the pills immediately and return to the ER for rash, hives, breathing difficulties, or swelling. Ibuprofen(Motrin, Advil) may be used for fever or pain. Use 600mg every six hours as needed. Take with food. Avoid using more than 2400mg in a 24 hour period. Do not use 2400mg per day for more than three consecutive days without physician direction. Prolonged inappropriate use can lead to stomach upset or ulcers. (AND/OR) Acetaminophen(Tylenol) may be used for fever or pain. Use 1000mg every six hours as needed. Avoid using more than 3000mg in a 24 hour period. Rest and drink plenty of fluids. Continue current medications. Return to the ER for severe pain, persistent fevers, spreading redness, or any worsening of your condition. Follow up with your surgeon within 2-3 days for a recheck of the current condition. Problem Qualifiers
== END 2017-09-07 01:14 | disposition home or self-care (01) ==
LOC: C.EDB 00:29
DX: T81.89XA Other complications of procedures, not elsewhere classified, initial encounter (principal); Y84.8 Other medical procedures as the cause of abnormal reaction of the patient, or of later complication, without mention of misadventure at the time of the procedure; R11.0 Nausea; J45.909 Unspecified asthma, uncomplicated; E66.01 Morbid (severe) obesity due to excess calories; F17.200 Nicotine dependence, unspecified, uncomplicated; Z87.440 Personal history of urinary (tract) infections; Z98.890 Other specified postprocedural states

== ENCOUNTER 2018-02-05 01:47 | Emergency (ER) | payer OTHER ==
[~2018-02-05] VITALS: Ht 170.2 cm; Wt 169.4 kg
[~2018-02-05 01:47] MED LIST changes: -DOCU-94 PO; +ONDA4TAB10 SL; -SULF800T23 PO
[2018-02-05 01:52] VITALS: TEMP 36.3; Ht 170.2 cm; Wt 169.4 kg
[2018-02-05] MEDS ORDERED: PRENTAB26 PO (02:10)
[2018-02-05 02:49] LABS: BASO % 0.1 %; BASO ABS # 0.01 K/uL (0-0.2); EOS ABS # 0.14 K/uL (0-0.5); HEMATOCRIT 37.8 % (37-47); HEMOGLOBIN 12.7 g/dL (12.0-16.0); IG# 0.12 K/uL (0.00-0.02); LYMPH % 28.2 %; MEAN CELL VOLUME 83.4 fL (80-100); MEAN CORPUSCULAR HGB CONC 33.6 g/dl (32-36); MEAN PLATELET VOLUME 10.6 fL (7.4-10.4); MONO % 6.9 %; MONO ABS # 0.96 K/uL (0.11-0.59); NEUT % 62.9 %; NEUT ABS # 8.72 K/uL (1.4-6.5); PLATELET COUNT 184 K/uL (130-400); RED CELL DISTRIBUTION WIDTH CV 13.7 % (11.5-14.5); RED CELL DISTRIBUTION WIDTH SD 41.3 fL (36.4-46.3); WHITE BLOOD COUNT 13.85 K/uL (4.8-10.8)
[2018-02-05 03:11] LABS: ALBUMIN 2.6 gm/dl (3.4-5.0); ALT/SGPT 20 U/L (12-78); AST/SGOT 7 U/L (15-37); BLOOD UREA NITROGEN 8 mg/dl (7-18); CALCIUM 8.6 mg/dl (8.5-10.1); CARBON DIOXIDE 26 mmol/L (21-32); CREATININE 0.47 mg/dl (0.60-1.20); GLUCOSE 150 mg/dl (70-99); LIPASE 107 U/L (73-393); POTASSIUM 3.3 mmol/L (3.5-5.1); SODIUM 135 mmol/L (136-145)
[2018-02-05 03:22] LABS: ALKALINE PHOSPHATASE 73 U/L (45-117)
[2018-02-05 05:24] VITALS: BP 123/74; PULSE 88; O2SAT 99
--- NOTE | 2018-02-05 07:08 | DIAGNOSTIC IMAGING REPORT ---
CHEST ONE VIEW PORTABLE CLINICAL HISTORY: 32 years-old Female presenting with chest pain. . . TECHNIQUE: AP view of the chest was obtained. COMPARISON: 11/14/2016. FINDINGS: Image quality degraded by patient body habitus. This limits diagnostic sensitivity. Cardiomediastinal silhouette normal. Lungs and pleural spaces clear. Osseous structures normal. Upper abdomen normal. IMPRESSION: 1. No acute cardiopulmonary disease. Electronically signed by: Magdi Mejia M.D. 02/05/2018 7:06 AM Dictated Date/Time: 02/05/2018 7:06 AM
--- NOTE | 2018-02-05 07:11 | DIAGNOSTIC IMAGING REPORT ---
R VENOUS DOPP LOWER EXT UNILAT CLINICAL HISTORY: vague right leg pain. . Pain. Edema. TECHNIQUE: Venous Doppler COMPARISON STUDY: None FINDINGS: Normal study IMPRESSION: Normal study The above report was generated using voice recognition software. It may contain grammatical, syntax or spelling errors. Electronically signed by: He Pickett M.D. 02/05/2018 7:09 AM Dictated Date/Time: 02/05/2018 7:09 AM
--- NOTE | 2018-02-05 23:50 | EMERGENCY ROOM VISIT NOTE ---
History First contact with patient: 02:33 Chief Complaint: CARDIAC ASSESSMENT Stated Complaint: CHEST AND BACK PAIN Nursing Triage Summary: Pt 16wks . Pt states she started with midsternal chest pain/abd pain a couple days ago but wasn't bad. Increased today and radiates to back. Pt called her OB and told to come in. History of Present Illness The patient is a 32 year old female who presents to the Emergency Room with complaints of vague midsternal chest discomfort off and on for the past several days. Her discomfort has been minimal and she did speak to her primary care physician about this. She states that tonight while at work the pain returned and she became very anxious about it. She reports that she is 4 months , and is not having abdominal pain or cramping. No vaginal bleeding or discharge. Patient has not had recent travel history. She is obese and reports of chronic swelling into her right leg, but no new symptoms. She does not have a history of cardiac or pulmonary disease. She has not taken anything [id number] for her discomfort which she currently rates that she rates a 2 /10. She is to MRI Review of Systems More than 10 systems were reviewed and otherwise negative with the exception of history of present illness. Past Medical/Surgical History Medical Problems: (1) Abdominal pain (2) Abscess of breast (3) Acute bronchitis (4) Anxiety State Nos (5) Asthma (6) Body aches (7) Chest pain (8) Fatigue (9) Hidradenitis (10) Hidradenitis suppurativa of left axilla (11) Hidradenitis suppurativa of left axilla (12) Hidradenitis suppurativa of right axilla (13) HIGH VAGINAL LAC-POSTPAR (14) Influenza-like symptoms (15) Left ankle sprain (16) Morbid Obesity (17) Pharyngitis (18) Preseptal cellulitis of left eye (19) Sinusitis (20) Sty, internal (21) Thoracic spine pain (22) Urinary tract infection (23) Urinary tract infection (24) Vaginal delivery (25) Vaginal discharge in Surgical Problems: (1) History of bilateral breast reduction surgery Family History Patient reports no known family medical history. Social History Smoking Status: Former Smoker Alcohol Use: none Drug Use: none Marital Status: Housing Status: lives with family Occupation Status: employed Current/Historical Medications Scheduled Multivit/Min/Iron/Fol Ac/Pren ( Vitamin), 1 TAB PO DAILY Physical Exam Vital Signs Date Time Temp Pulse Resp B/P (MAP) Pulse Ox O2 Delivery O2 Flow Rate FiO2 02/05/18 05:24 88 18 123/74 99 02/05/18 03:46 88 18 160/82 99 Room Air 02/05/18 02:26 93 02/05/18 01:52 36.3 93 20 153/86 96 Room Air Physical Exam VITALS: Vitals are noted on the nurse's note and reviewed by myself. Vital signs stable. GENERAL: Well-developed, well-nourished, obese female, who is in no acute distress and resting comfortably. Patient is cooperative with the examination. HEAD: Normocephalic atraumatic. NECK: Supple without nuchal rigidity. No lymphadenopathy. No thyromegaly. Cervical spine is nontender. HEART: Regular rate and rhythm without murmurs gallops or rubs. LUNGS: Clear to auscultation bilaterally without wheezes, rales or rhonchi. No retractions or accessory muscle use. ABDOMEN: Positive normal bowel sounds x 4. Soft, nontender, without masses or organomegaly. No guarding or rebound tenderness. MUSCULOSKELETAL: No muscle atrophy, erythema, or edema noted. Full range of motion in all extremities. Medical Decision & Procedures ER Provider Diagnostic Interpretation: CHEST ONE VIEW PORTABLE CLINICAL HISTORY: 32 years-old Female presenting with chest pain. . . TECHNIQUE: AP view of the chest was obtained. COMPARISON: 11/14/2016. FINDINGS: Image quality degraded by patient body habitus. This limits diagnostic sensitivity. Cardiomediastinal silhouette normal. Lungs and pleural spaces clear. Osseous structures normal. Upper abdomen normal. IMPRESSION: 1. No acute cardiopulmonary disease. R VENOUS DOPP LOWER EXT UNILAT CLINICAL HISTORY: vague right leg pain. . Pain. Edema. TECHNIQUE: Venous Doppler COMPARISON STUDY: None FINDINGS: Normal study IMPRESSION: Normal study Laboratory Results 02/05/18 02:12 Red Blood Count 4.53, Mean Corpuscular Volume 83.4, Mean Corpuscular Hemoglobin 28.0, Mean Corpuscular Hemoglobin Concent 33.6, Mean Platelet Volume 10.6, Neutrophils (%) (Auto) 62.9, Lymphocytes (%) (Auto) 28.2, Monocytes (%) (Auto) 6.9, Eosinophils (%) (Auto) 1.0, Basophils (%) (Auto) 0.1, Neutrophils # (Auto) 8.72, Lymphocytes # (Auto) 3.90, Monocytes # (Auto) 0.96, Eosinophils # (Auto) 0.14, Basophils # (Auto) 0.01 02/05/18 02:12 Test 02/05/18 02:12 White Blood Count 13.85 K/uL (4.8-10.8) Red Blood Count 4.53 M/uL (4.2-5.4) Hemoglobin 12.7 g/dL (12.0-16.0) Hematocrit 37.8 % (37-47) Mean Corpuscular Volume 83.4 fL (80-100) Mean Corpuscular Hemoglobin 28.0 pg (25-34) Mean Corpuscular Hemoglobin Concent 33.6 g/dl (32-36) Platelet Count 184 K/uL (130-400) Mean Platelet Volume 10.6 fL (7.4-10.4) Neutrophils (%) (Auto) 62.9 % Lymphocytes (%) (Auto) 28.2 % Monocytes (%) (Auto) 6.9 % Eosinophils (%) (Auto) 1.0 % Basophils (%) (Auto) 0.1 % Neutrophils # (Auto) 8.72 K/uL (1.4-6.5) Lymphocytes # (Auto) 3.90 K/uL (1.2-3.4) Monocytes # (Auto) 0.96 K/uL (0.11-0.59) Eosinophils # (Auto) 0.14 K/uL (0-0.5) Basophils # (Auto) 0.01 K/uL (0-0.2) RDW Standard Deviation 41.3 fL (36.4-46.3) RDW Coefficient of Variation 13.7 % (11.5-14.5) Immature Granulocyte % (Auto) 0.9 % Immature Granulocyte # (Auto) 0.12 K/uL (0.00-0.02) D-Dimer 440 ug/L FEU (0-500) Anion Gap 6.0 mmol/L (3-11) Est Creatinine Clear Calc Drug Dose 289.4 ml/min Estimated GFR () > 150.0 Estimated GFR (Non- 132.5 BUN/Creatinine Ratio 15.9 (10-20) Calcium Level 8.6 mg/dl (8.5-10.1) Magnesium Level 1.8 mg/dl (1.8-2.4) Total Bilirubin 0.2 mg/dl (0.2-1) Aspartate Amino Transf (AST/SGOT) 7 U/L (15-37) Alanine Aminotransferase (ALT/SGPT) 20 U/L (12-78) Alkaline Phosphatase 73 U/L (45-117) Troponin I < 0.015 ng/ml (0-0.045) Total Protein 7.0 gm/dl (6.4-8.2) Albumin 2.6 gm/dl (3.4-5.0) Globulin 4.4 gm/dl (2.5-4.0) Albumin/Globulin Ratio 0.6 (0.9-2) Lipase 107 U/L (73-393) Thyroid Stimulating Hormone (TSH) 1.400 uIu/ml (0.300-4.500) ECG Per My Interpretation Change: Normal sinus rhythm @100 bpm Normal ECG When compared with ECG of 14-NOV-2016 10:58, No significant change was found ED Course Physical exam and history were performed. Nursing notes, EMR, and Medication List were personally reviewed. Patient appears to have vague chest discomfort off and on for the past several days. The patient does not appear toxic on examination. EKG is as above and was reviewed by myself is normal sinus rhythm at 100 bpm. IV access was established and labs were obtained. Chest x-ray was performed. The patient does report chronic right leg swelling, and out of concern for this I did elect to perform an ultrasound. The patient was placed on a monitoring specialist. The patient's blood work is as above and was reviewed. She does not have a significantly elevated white blood cell count, gross anemia, bandemia, or significant electrolyte imbalance. Troponin and d-dimer 1 are both negative. Chest x-ray does not show acute findings. Ultrasound was negative for DVT. On reevaluation the patient continued to remain very comfortable in her ER bed. Clinically I do not appreciate an acute cardiopulmonary event causing her symptoms. The patient will need to follow with her primary care physician and ELECTR[employer]OR for ongoing care and evaluation. She was otherwise invited back to the ER with any new, worsening, or concerning symptoms. The chart was completed utilizing [employer] Speech Voice Recognition Software. Grammatical errors, random word insertions, pronoun errors, and incomplete sentences are an occasional consequence of this system due to software limitations, ambient noise, and hardware issues. Any formal questions or concerns about the content, text, or information contained within the body of this dictation should be directly addressed to the provider for clarification. . Medical Decision Differential diagnosis includes, but is not limited to: Myocardial infarction, dysrhythmia, pericarditis, pneumothorax, aortic aneurysm/dissection, DVT/PE, anxiety, GERD, PUD, electrolyte imbalance, thyroid disorder, pneumonia, bronchitis, pancreatitis, and others Impression Primary Impression: Precordial chest pain Departure Information Dispostion Home / Self-Care Condition GOOD Forms Work Instructions, Specific Date: may return to work [facility] 02/05/18 IMPORTANT VISIT INFORMATION Patient Instructions [facility] Additional Instructions You were seen and evaluated today on an emergency basis only. This is not a substitute for, or an effort to provide, complete comprehensive medical care. It is not possible to recognize and treat all injuries or illnesses in a single emergency department visit. For this reason it is recommended that you followup with your primary care physician and ELECTR[employer]OR for ongoing care and evaluation. You are welcome to return to the emergency department anytime with new, worsening, or concerning symptoms. Work Instructions Specific Date: may return to work [facility] 02/05/18
== END 2018-02-05 05:25 | disposition home or self-care (01) ==
LOC: C.EDB 01:49
DX: O99.89 Other specified diseases and conditions complicating pregnancy, childbirth and the puerperium (principal); R07.2 Precordial pain; Z3A.16 16 weeks gestation of pregnancy; J45.909 Unspecified asthma, uncomplicated; Z87.891 Personal history of nicotine dependence

== ENCOUNTER 2018-03-09 21:56 | Emergency (ER) | payer OTHER ==
[~2018-03-09] VITALS: Ht 170.2 cm; Wt 200.2 kg
[~2018-03-09 21:56] MED LIST changes: -LORA-741 PO; -ONDA4TAB10 SL; +PRENTAB26 PO; -VNTHFA/IN INH
[2018-03-09 22:04] VITALS: TEMP 36.8; Ht 170.2 cm; Wt 200.2 kg
--- NOTE | 2018-03-09 23:52 | EMERGENCY ROOM VISIT NOTE ---
History First contact with patient: 22:10 Chief Complaint: LEG PAIN,LEG INJURY Stated Complaint: UPPER RT LEG NUMB AND TINGLIN History of Present Illness The patient is a 32 year old female who presents to the Emergency Room with complaints of pain in her right upper right leg. The patient reports that she has had pain from her right knee to the thigh for the past 2 weeks. She reports that it has been a dull, aching pain. She rates her discomfort a 5/10. She states that today while she was standing, the area began to feel numb and tingling. She then felt a warm sensation throughout her leg and became concerned, prompting her to call her [employer]. They told her to come here to rule out a DVT. The patient is currently 20 weeks . She denies history of blood clots. She is a smoker and states that she smokes approximately 4 cigarettes daily. She recently drove from [place] but denies any other travel. She denies back pain, fevers, chest pain or shortness of breath. Review of Systems A complete 10 point review of systems was reviewed with the patient with pertinent positives and negatives as per history of present illness. All else were negative. Past Medical/Surgical History Medical Problems: (1) Abdominal pain (2) Abscess of breast (3) Acute bronchitis (4) Anxiety State Nos (5) Asthma (6) Body aches (7) Chest pain (8) Fatigue (9) Hidradenitis (10) Hidradenitis suppurativa of left axilla (11) Hidradenitis suppurativa of left axilla (12) Hidradenitis suppurativa of right axilla (13) HIGH VAGINAL LAC-POSTPAR (14) Influenza-like symptoms (15) Left ankle sprain (16) Morbid Obesity (17) Pharyngitis (18) Preseptal cellulitis of left eye (19) Sinusitis (20) Sty, internal (21) Thoracic spine pain (22) Urinary tract infection (23) Urinary tract infection (24) Vaginal delivery (25) Vaginal discharge in Surgical Problems: (1) History of bilateral breast reduction surgery Family History Patient reports no known family medical history. Social History Smoking Status: Never Smoker Alcohol Use: none Drug Use: none Marital Status: Housing Status: lives with family Occupation Status: employed Current/Historical Medications Scheduled Multivit/Min/Iron/Fol Ac/Pren ( Vitamin), 1 TAB PO DAILY Physical Exam Vital Signs Date Time Temp Pulse Resp B/P (MAP) Pulse Ox O2 Delivery O2 Flow Rate FiO2 03/10/18 00:03 105 22 139/80 96 03/09/18 22:04 36.8 109 22 142/82 96 Room Air Physical Exam VITALS: Vitals are noted on the nurse's note and reviewed by myself. Vital signs stable. GENERAL: This is a 32-year-old female, in no acute distress, nondiaphoretic, well-developed well-nourished. SKIN: The skin was without rashes. HEART: Regular rate and rhythm without murmurs gallops or rubs. LUNGS: Clear to auscultation bilaterally without wheezes, rales or rhonchi. MUSCULOSKELETAL: No obvious erythema or edema of the right upper leg. No tenderness to palpation. Full range of motion of the right lower extremity. NEURO: Patient was alert and oriented to person place and time. Normal sensation. Medical Decision & Procedures ER Provider Diagnostic Interpretation: US VENOUS RIGHT LOWER EXTREMITY: No DVT demonstrated. Radiologist: Rory Willoughby M.D. Medical Decision Differential diagnosis includes DVT, superficial thrombosis, lumbar radiculopathy, muscular strain, among others. The patient is a 32-year-old female who presents today complaining of right leg pain. Ultrasound of the right leg was performed and shows no evidence of DVT. There is no evidence of cellulitis or abscess on exam. Patient's discomfort may be secondary to lumbar radiculopathy. She has follow-up scheduled with her [employer] this week. She verbalized understanding of my assessment and treatment plan was discharged home in good condition. Medication Reconcilliation Current Medication List: was personally reviewed by ri Blood Pressure Screening Patient's blood pressure: Normal blood pressure Impression Primary Impression: Leg pain, right Departure Information Dispostion Home / Self-Care Condition GOOD Referrals Madeline Wallace DO (PCP) Patient Instructions My [facility] Additional Instructions Follow-up with your primary care provider/[facility] this week for a recheck. Ultrasound was negative for any blood clots within the leg. Tylenol as needed for pain. Return here for worsening pain, persistent numbness, weakness, or other new/ concerning symptoms.
[2018-03-10 00:03] VITALS: BP 139/80; PULSE 105; O2SAT 96
--- NOTE | 2018-03-10 06:41 | DIAGNOSTIC IMAGING REPORT ---
R VENOUS DOPP LOWER EXT UNILAT CLINICAL HISTORY: right upper leg pain pain. Edema. TECHNIQUE: Venous Doppler COMPARISON STUDY: 02/05/2018 FINDINGS: Negative study IMPRESSION: Negative study The above report was generated using voice recognition software. It may contain grammatical, syntax or spelling errors. Electronically signed by: He Pickett M.D. 03/10/2018 6:39 AM Dictated Date/Time: 03/10/2018 6:39 AM
== END 2018-03-10 00:04 | disposition home or self-care (01) ==
LOC: C.EDB 21:56
DX: O99.89 Other specified diseases and conditions complicating pregnancy, childbirth and the puerperium (principal); O99.332 Smoking (tobacco) complicating pregnancy, second trimester; M79.604 Pain in right leg; Z3A.20 20 weeks gestation of pregnancy; F17.210 Nicotine dependence, cigarettes, uncomplicated

== ENCOUNTER 2018-07-20 13:41 | Outpatient (CLI) | payer OTHER ==
[2018-07-20] MEDS ORDERED: ACETAMINOPHEN 325 MG TAB PO PRN (15:00)
[2018-07-20 15:22] LABS: BASO % 0.1 %; BASO ABS # 0.01 K/uL (0-0.2); EOS % 0.5 %; EOS ABS # 0.06 K/uL (0-0.5); HEMATOCRIT 39.3 % (37-47); HEMOGLOBIN 12.8 g/dL (12.0-16.0); IG# 0.06 K/uL (0.00-0.02); LYMPH % 23.6 %; LYMPH ABS # 2.73 K/uL (1.2-3.4); MEAN CELL VOLUME 85.6 fL (80-100); MEAN CORPUSCULAR HEMOGLOBIN 27.9 pg (25-34); MEAN CORPUSCULAR HGB CONC 32.6 g/dl (32-36); MONO % 9.1 %; MONO ABS # 1.05 K/uL (0.11-0.59); NEUT % 66.2 %; NEUT ABS # 7.65 K/uL (1.4-6.5); PLATELET COUNT 154 K/uL (130-400); RED CELL DISTRIBUTION WIDTH SD 46.7 fL (36.4-46.3); WHITE BLOOD COUNT 11.56 K/uL (4.8-10.8)
[2018-07-20 15:44] LABS: ALBUMIN 2.3 gm/dl (3.4-5.0); ALKALINE PHOSPHATASE 159 U/L (45-117); ALT/SGPT 19 U/L (12-78); AST/SGOT 10 U/L (15-37); BLOOD UREA NITROGEN 6 mg/dl (7-18); CALCIUM 8.1 mg/dl (8.5-10.1); CARBON DIOXIDE 23 mmol/L (21-32); CREATININE 0.54 mg/dl (0.60-1.20); GLUCOSE 142 mg/dl (70-99); POTASSIUM 3.6 mmol/L (3.5-5.1); SODIUM 137 mmol/L (136-145); TOTAL PROTEIN 6.5 gm/dl (6.4-8.2)
--- NOTE | 2018-07-20 18:00 | DIAGNOSTIC IMAGING REPORT ---
BIOPHYSICAL PROFILE CLINICAL HISTORY: Repeat biophysical profile. COMPARISON STUDY: No previous studies for comparison. TECHNIQUE: Transabdominal sonography of the fetus was performed. FINDINGS: Please note that a dedicated anatomical survey was not performed. Single viable intrauterine gestation is noted with normal heart rate of 161 bpm. Placenta is located anteriorly. There is no placental abnormality. Presentation is cephalic. Amniotic fluid index is 10.7 cm. breathing, tone and movement were normal. Cervix was not well assessed on this exam. IMPRESSION: 1. Single viable intrauterine gestation with normal biophysical profile 8 out of 8. 2. Anteriorly located placenta with no placental abnormality identified. 3. Cephalic presentation. Electronically signed by: Kael Victoria M.D. 07/20/2018 5:59 PM Dictated Date/Time: 07/20/2018 5:56 PM
--- NOTE | 2018-07-20 18:30 | Discharge Instructions ---
Discharge Instructions Date of Service Jul 20, 2018. Admission Reason for Admission: NST Discharge Discharge Diagnosis / Problem: abnormal antenetal testing Discharge Goals Goal(s): Continuing OB care Activity Recommendations Activity Limitations: as noted below SPECIAL CARE INSTRUCTIONS: Call Doctor if: * Regular contractions every 5 minutes or greater than contractions in one hour. * Bleeding * Water breaks or is leaking * Decreased movement * Fever >100.4 degrees F * Pain not relieved by routine measures or pain medication ordered. FOLLOW UP VISIT: Return to Labor and Delivery on for /call for appointment time . Follow-up Visit with: When: . Current Hospital Diet Patient's current hospital diet: Discharge Diet Recommended Diet: Regular Diet Pending Studies Studies pending at discharge: no Medical Emergencies . Who to Call and When: Medical Emergencies: If at any time you feel your situation is an emergency, please call 911 immediately. . Non-Emergent Contact Non-Emergency issues call your: Specialist . . "Provider Documentation" section prepared by Arun Sheppard. .
--- NOTE | 2018-07-20 19:02 | HISTORY & PHYSICAL EXAMINATION ---
DATE OF ADMISSION: 07/20/2018 Patient is a 33-year-old G3, P2 at 39 weeks today. has been complicated by class 3 obesity. Patient has gestational diabetes as well and is on diet. She was seen today in the office. She is scheduled for induction on 07/23/18. Patient is recommended to have NST twice-weekly. Today, in the office, patient did not get an NST. She got a biophysical of 6/8. Because of patient's obesity, she usually has been getting biophysical of NST because of difficulty in the office to have fetus on the monitor for prolonged tracing. BPP was 6/8. No movement on BPP . She was, therefore, sent to labor and delivery for prolonged monitoring. On arrival evaluation, no shortness of breath, no chills, no fever. Patient was placed on the monitor. NST became reactive. Patient was given only p.o. fluids on arrival. Followup on biophysical is repeated here [facility] and is 8/8. I have discussed with patient the options: One, she could stay and have the induction for labor started today or return on Friday. Patient wants to keep her Friday date because she has plans for the babysitting and other plans scheduled for Friday. NST as stated above was repeated, was reactive, and biophysical of 8/8. We, therefore, agreed that the patient can go home and return for induction on Friday. Patient knows between today and Friday, if there is a decrease in movement or change in activity, to call for evaluation as soon as possible. Patient is, therefore, being discharged home in stable condition. BEE
== END 2018-07-20 18:35 | disposition home or self-care (01) ==
LOC: C.OPB 13:41 → C.LD 13:42 → C.OPB 18:35
PROVIDERS: ATTEND Obstetrics & Gynecology
DX: O24.410 Gestational diabetes mellitus in pregnancy, diet controlled (principal); O99.213 Obesity complicating pregnancy, third trimester; Z3A.39 39 weeks gestation of pregnancy